=== PATIENT | female | born 1975 | race Caucasian/White ===

== ENCOUNTER → 2022-04-10 09:03 | Outpatient (BNVA) | payer OTHER, SELFPAY | PROVIDERS: PCP Family Medicine; Visit Provider Physician Assistant | DX: Z13.89 Encounter for screening for other disorder (principal) ==

== ENCOUNTER 2022-04-26 14:54 | Outpatient (REF) | payer OTHER, SELFPAY ==
--- NOTE | ~2022-04-26 | XR_ITS ---
EXAMINATION: XR CHEST CLINICAL INFORMATION: Morbid obesity COMPARISON: None TECHNIQUE: 2 views of the chest were obtained. FINDINGS: No significant abnormality is noted involving the heart, lungs, mediastinum, bony thorax or soft tissues. XR/XR chest 2V IMPRESSION: No acute disease.
--- NOTE | 2022-04-26 15:07 | ECG_ITS ---
Test Reason : OBESITY Blood Pressure : / mmHG Vent. Rate : 068 BPM Atrial Rate : 068 BPM P-R Int : 136 ms QRS Dur : 092 ms QT Int : 398 ms P-R-T Axes : 020 044 012 degrees QTc Int : 423 ms Normal sinus rhythm with sinus arrhythmia Normal ECG No previous ECGs available Referred By: Ryan Sue Electronically Signed By:KARI WING MD
[2022-04-26 15:39] LABS: MANUAL DIFF FLAG NO
[2022-04-26 15:55] LABS: Basophils Percent Auto 0.5 % (0-2); Eosinophils Absolute Auto 0.2 X10*3/uL (0.0-0.4); Hematocrit 39.7 % (37.0-47.0); Hemoglobin 13.4 g/dl (12.0-16.0); Imm Gran Abs Auto 0.04 X10*3/uL (0.00-0.03); Imm Gran Pct Auto 0.5 % (0.0-0.4); Lymphocytes Percent Auto 25.9 % (20-40); Mean Corpuscular HGB Conc 33.8 g/dl (31.0-35.0); Mean Corpuscular Hemoglobin 29.3 pg (27.0-33.0); Mean Corpuscular Volume 86.7 fL (80.0-98.0); Mean Platelet Volume 9.2 fL (9.4-12.3); Monocytes Absolute Auto 0.4 X10*3/uL (0.1-1.2); Monocytes Percent Auto 5.6 % (2-11); Neutrophils Absolute Auto 5.1 x10*3/uL (2.0-8.3); Neutrophils Percent Auto 65.5 % (45-73); Platelet Count 243 X10*3/uL (160-400); Red Blood Count 4.58 X10*6/uL (4.20-5.50); Red Cell Distribution Width 13.2 % (11.0-16.0); White Blood Count 7.8 X10*3/uL (4.8-10.8)
[2022-04-26 16:28] LABS: Alanine Aminotransferase 37 U/L (0-31); Albumin Level 4.5 g/dL (3.5-5.0); Alkaline Phosphatase 75 U/L (39-117); Anion Gap 13 (12-20); Aspartate Amino Transferase 45 U/L (5-31); Bilirubin Total 0.6 mg/dL (0.0-1.0); Blood Urea Nitrogen 14 mg/dL (9-16); C Reactive Protein 0.81 mg/dL (< or = 0.50); Calcium 9.6 mg/dL (8.4-10.2); Carbon Dioxide 25 mmol/L (22-29); Chloride 101 mmol/L (96-108); Cholesterol 244 mg/dL; Estimated Average Glucose 120 mg/dL; Estimated Glomerular Filt Rate > 60; Glucose Random 86 mg/dL (60-115); HDL Cholesterol 55 mg/dL; Hemoglobin A1c % 5.8 %; Iron 80 mcg/dL (30-160); LDL Cholesterol Calculated 177 mg/dl; Percent Iron Saturation 18 % (15-50); Potassium 4.2 mmol/L (3.3-5.1); Sodium 135 mmol/L (135-145); Total Iron Binding Capacity 444 mcg/dL (228-428); Total Protein 7.9 g/dL (6.5-8.0); Triglycerides 64 mg/dL; Unsaturated Iron Binding 364 ug/dL
[2022-04-26 16:50] LABS: Ferritin 58 ng/mL (10-250); Insulin 13 uU/mL (2-29); Vitamin D 25-OH Total 25.8 ng/mL (>30)
[2022-04-26 17:01] LABS: Folate > 20.0 ng/mL (> or = 4.0); Vitamin B12 412 pg/mL (200-900)
[2022-04-27 15:41] LABS: Calcium (PTHI) 9.2 mg/dL (8.6-10.2); PTHI 50 pg/mL (16-77)
[2022-04-30 18:25] LABS: Vitamin B1 11 nmol/L (8-30)
[2022-05-01 05:56] LABS: Zinc 102 mcg/dL (60-130)
[2022-05-01 18:02] LABS: Vitamin A 38 mcg/dL (38-98)
== END 2022-04-26 14:55 | disposition home or self-care (01) ==
LOC: HO.LAB 14:54
PROVIDERS: PCP Family Medicine; Visit Provider Surgery
DX: E66.01 Morbid (severe) obesity due to excess calories (principal)
CPT/HCPCS: 36415; 71046; 80053; 80061; 82306; 82607; 82728; 82746; 83036; 83525; 83540; 83970; 84425; 84443; 84590; 84630; 85025; 86140; 93005

== ENCOUNTER 2022-05-05 10:20 | Outpatient (REF) | payer OTHER, SELFPAY ==
[2022-05-09 11:58] LABS: H Pylori Breath Test Negative (Negative)
== END 2022-05-05 10:21 | disposition home or self-care (01) ==
LOC: HO.LNP 10:20
PROVIDERS: Visit Provider Surgery
DX: E66.01 Morbid (severe) obesity due to excess calories (principal); Z11.0 Encounter for screening for intestinal infectious diseases
CPT/HCPCS: 83013

== ENCOUNTER → 2022-05-11 11:30 | Outpatient (BNVA) | payer OTHER, SELFPAY | PROVIDERS: PCP Family Medicine; Visit Provider Counselor Mental Health | DX: F50.81 Binge eating disorder (principal); E66.01 Morbid (severe) obesity due to excess calories | CPT/HCPCS: 90791 ==

== ENCOUNTER → 2022-06-07 10:24 | Outpatient (BNVA) | payer OTHER, SELFPAY | PROVIDERS: PCP Family Medicine; Visit Provider Dietitian, Registered | DX: Z71.3 Dietary counseling and surveillance (principal); E66.01 Morbid (severe) obesity due to excess calories | CPT/HCPCS: 97802 ==

== ENCOUNTER 2022-06-22 08:01 | Outpatient (REF) | payer OTHER, SELFPAY ==
--- NOTE | ~2022-06-22 | US_ITS ---
EXAMINATION: US COMPLETE ABDOMEN WITH LIVER ELASTOGRAPHY CLINICAL INFORMATION: Morbid/severe obesity due to excess calories. COMPARISON: None. TECHNIQUE: Real-time imaging of the abdominal viscera. Noninvasive ultrasound liver fibrosis assessment is performed using Joseph ElastPQ point quantification shear wave elastography (2D-SWE) with a C5-2 MHz transducer. Multiple elastography samples are obtained. FINDINGS: PANCREAS: The visualized pancreatic head and body are normal in appearance. The remainder of the pancreas is obscured from visualization by the overlying bowel gas. ABDOMINAL AORTA: The proximal, middle, and distal aortic segments are normal in caliber. INFERIOR VENA CAVA: Visualized portions are normal. LIVER: The liver demonstrates normal size, contour and echogenicity. No focal lesion or intrahepatic biliary duct dilatation. The right lobe measures 17.5 cm in length. The left lobe measures 9.6 cm in length. Portal flow is hepatopedal. Shear wave liver elastography median stiffness is 1.71 m/s (reference: normal median stiffness is 1.3 m/s or less). IQR/median stiffness to assess sampling precision is 0.12 (reference: good quality data set is IQR/median stiffness of 0.15 or less). GALLBLADDER: Normal. The gallbladder is physiologically distended without evidence of stones, sludge, polyps, wall thickening or pericholecystic fluid. COMMON BILE DUCT: Normal in caliber measuring 0.4 cm in diameter. RIGHT KIDNEY: Normal. No hydronephrosis. No renal calculi or focal parenchymal lesions. The kidney measures 11.4 cm in maximum dimension. LEFT KIDNEY: Normal. No hydronephrosis. No renal calculi or focal parenchymal lesions. The kidney measures 11.3 cm in maximum dimension. SPLEEN: Normal. The spleen measures 9.3 cm in maximum dimension. FREE FLUID: None. US/US abdomen comp w elastography IMPRESSION: 1. Unremarkable complete abdomen ultrasound. 2. Liver elastography: Median liver stiffness 1.71 correlates with cACLD ( suggestive). REFERENCE: Society of Radiologists in Ultrasound Liver Stiffness Thresholds (2020): LIVER STIFFNESS THRESHOLDS: *Liver Stiffness equal or less than 1.3 m/s: High probability of being normal. *Liver Stiffness less than 1.7 m/s: In the absence of other known clinical signs, rules out compensated advanced chronic liver disease. *Liver Stiffness 1.7-2.1 m/s: Suggestive of compensated advanced chronic liver disease but need further test for confirmation. *Liver Stiffness over 2.1 m/s: Rules in compensated advanced chronic liver disease. *Liver Stiffness over 2.4 m/s: Suggestive of clinically significant portal hypertension. QUALITY OF DATA SET: *IQR/Median value equal or less than 0.15 implies a quality data set. *IQR/Median value over 0.15 implies a poor quality data set. SIGNIFICANT CHANGE FROM PRIOR EXAM: Significant change if liver stiffness measurement is 10% or greater from prior exam. OTHER CONSIDERATIONS: The stage of liver fibrosis may be overestimated in the setting of acute hepatitis, liver inflammation, elevated liver function tests, hepatic vascular congestion, obstructive cholestasis, non-fasting state, and infiltrative diseases such as amyloidosis and lymphoma. In some patients with NAFLD, the liver stiffness thresholds for compensated advanced chronic liver disease may be lower. In causes other than viral hepatitis and NAFLD, liver stiffness thresholds are not well established.
--- NOTE | ~2022-06-22 | FL_ITS ---
EXAMINATION: XR FLUOROSCOPY UPPER GI WITH AIR CLINICAL INFORMATION: Morbid/severe obesity due to excess calories. COMPARISON: None. TECHNIQUE: Routine upper GI air-contrast study was performed. FINDINGS: Following oral administration of thick barium and effervescent granules, there is normal propagation of bolus from the oral cavity through the pharynx and esophagus without any evidence of obstruction, narrowing or stricture. On placing patient supine and prone lying, the course, caliber and peristalsis of the stomach, duodenal bulb and the sweep are normal. There is no gastroesophageal reflux or hiatal hernia. FLUOROSCOPY TIME: 1.5 minutes. DOSE AREA PRODUCT: 30.489 uGy-m2 (microgray-meter squared). FL/FL upper GI w air IMPRESSION: Unremarkable upper GI air-contrast study.
== END 2022-06-22 08:02 | disposition home or self-care (01) ==
LOC: HO.US 08:01
PROVIDERS: Visit Provider Surgery
DX: Z01.818 Encounter for other preprocedural examination (principal); E66.01 Morbid (severe) obesity due to excess calories; K21.9 Gastro-esophageal reflux disease without esophagitis
CPT/HCPCS: 74246; 76705; 76981

== ENCOUNTER 2022-07-19 08:45 | Outpatient (REF) | payer OTHER, SELFPAY | END 2022-07-19 08:46 | disposition home or self-care (01) | LOC: HO.LAB 08:45 | PROVIDERS: PCP Family Medicine; Visit Provider Surgery | DX: Z13.89 Encounter for screening for other disorder (principal) ==

== ENCOUNTER 2022-07-27 06:07 | Inpatient (IN) | payer OTHER, SELFPAY ==
[2022-07-14 12:48] VITALS: BMI 37.0
[2022-07-19 09:08] LABS: MANUAL DIFF FLAG NO
[2022-07-19 09:38] LABS: INTERNATIONAL NORM RATIO 1.1 (0.9-1.1); Prothrombin Time 12.8 SEC (10.0-13.1)
[2022-07-19 09:40] LABS: Partial Thromboplastin Time 31.6 SEC (26.0-36.4)
[2022-07-19 09:42] LABS: Basophils Percent Auto 0.5 % (0-2); Eosinophils Absolute Auto 0.3 X10*3/uL (0.0-0.4); Eosinophils Percent Auto 4.7 % (0-4); Hematocrit 41.5 % (37.0-47.0); Hemoglobin 14.1 g/dl (12.0-16.0); Imm Gran Abs Auto 0.02 X10*3/uL (0.00-0.03); Imm Gran Pct Auto 0.4 % (0.0-0.4); Lymphocytes Absolute Auto 1.7 X10*3/uL (1.2-4.9); Lymphocytes Percent Auto 30.5 % (20-40); Mean Corpuscular Hemoglobin 29.5 pg (27.0-33.0); Mean Corpuscular Volume 86.8 fL (80.0-98.0); Mean Platelet Volume 9.6 fL (9.4-12.3); Monocytes Absolute Auto 0.4 X10*3/uL (0.1-1.2); Monocytes Percent Auto 6.8 % (2-11); Neutrophils Absolute Auto 3.2 x10*3/uL (2.0-8.3); Neutrophils Percent Auto 57.1 % (45-73); Platelet Count 221 X10*3/uL (160-400); Red Blood Count 4.78 X10*6/uL (4.20-5.50); Red Cell Distribution Width 12.7 % (11.0-16.0); White Blood Count 5.6 X10*3/uL (4.8-10.8)
[2022-07-19 09:57] LABS: Alanine Aminotransferase 24 U/L (0-31); Albumin Level 4.5 g/dL (3.5-5.0); Alkaline Phosphatase 67 U/L (39-117); Anion Gap 15 (12-20); Aspartate Amino Transferase 24 U/L (5-31); Bilirubin Total 0.7 mg/dL (0.0-1.0); Blood Urea Nitrogen 10 mg/dL (9-16); C Reactive Protein 0.28 mg/dL (< or = 0.50); Calcium 9.8 mg/dL (8.4-10.2); Carbon Dioxide 27 mmol/L (22-29); Chloride 102 mmol/L (96-108); Cholesterol 223 mg/dL; Creatinine Clr Calc Pharmacy 92.1; Estimated Glomerular Filt Rate > 60; Glucose Random 102 mg/dL (60-115); HDL Cholesterol 44 mg/dL; LDL Cholesterol Calculated 163 mg/dl; Potassium 4.6 mmol/L (3.3-5.1); Sodium 139 mmol/L (135-145); Total Protein 7.9 g/dL (6.5-8.0); Triglycerides 83 mg/dL
[2022-07-19 10:08] LABS: Estimated Average Glucose 117 mg/dL; Hemoglobin A1c % 5.7 %
[2022-07-19 10:17] LABS: Insulin 13 uU/mL (2-29)
--- NOTE | 2022-07-22 00:21 | MHC.SHP ---
Pre-Procedural Eval Section A Date of Service: 07/22/22 The patient is an INPATIENT: Yes The History & Physical has been completed within 30 days and I have reviewed it.: Yes Section B Chief Complaint: obesity Relevant Family History (Specify if Yes): No Relevant Social History: None Present Medications: None Medical History: No relevant PMH History of Previous Operations: No relevant previous surgery Allergies: Allergies Allergy/AdvReac Type Severity Reaction Status Date / Time No Known Allergies Allergy Verified 07/17/22 13:25 Review of Systems Sugical H&P ROS: Negative: Constitution, Cardiovascular, Respiratory, Neurological, Psychiatric, Hem-Onc, Allergic/Immunologic, Gastrointestinal, Genitourinary, Musculoskeletal, Integumentary, Endocrine and Eyes/Ears/Nose/Throat Exam Surgical H&P Exam: Normal: HEENT, Normal: Heart, Normal: Lungs, Normal: Extremities, Normal: Abdomen, Normal: Skin and Normal: Neurological Plan Diagnosis/Plan: Unchanged I have reviewed the history and physical and performed a pertinent physical examination on my patient. No changes have occurred unless specified.
[2022-07-27] VITALS (14 sets, daily range): BP systolic 115–154; BP diastolic 62–82; PULSE 54–85; RESP 12–18; TEMP 36.2–36.9; O2SAT 96–100
[2022-07-27 06:32] LABS: UPreg QC Valid YES; Urine Pregnancy NEGATIVE (NEGATIVE)
[2022-07-27] MEDS: Lactated Ringers 1,000 ML 999 ML IV (06:34)
[2022-07-27 07:08] LABS: COVID-19 Test Negative (Negative); IDNOW Serial# 9DB6401D
--- NOTE | 2022-07-27 07:15 | HO.ANESPROP2 ---
HPI - Anesthesia Eval Consult details Narrative: 46 F for gastric sleeve PMFSH Active Problems Active Problems: All Active Problems (Updated 07/17/22 @ 13:23 by Ryan Sue MD) Sleep apnea with use of continuous positive airway pressure (CPAP) (Acute) BMI 36.0-36.9,adult (Acute) Morbid obesity (Acute) Vitamin D deficiency (Acute) Vitamin B12 deficiency (Acute) Constipation (Acute) Binge-eating disorder, mild (Acute) Obesity (Acute) BMI 37.0-37.9, adult (Acute) Past Medical History Medical History (Updated 07/27/22 @ 10:10 by Ryan Sue MD) BMI 36.0-36.9,adult Obesity Sleep apnea Functional capacity: independent ambulation Family History Family History (Updated 04/10/22 @ 09:15 by Tanika Anthony) Mother No problems noted. Father Hypertension High cholesterol Family history of problems with anesthesia: No Surgical History Surgical History (Updated 07/27/22 @ 09:59 by Neeru Sam PA-C) Hx of breast reduction, elective Hx of section History of Problems with Anesthesia: No Social History Social History (Updated 04/10/22 @ 09:14 by Tanika Anthony) Are you a primary adult care manager to a significant other at home: No Do you presently have visiting nurse or other home services: No Alcohol intake: current Alcohol intake frequency: holidays/special occasions only Patient Tobacco Use Status: Never used Tobacco Use of substances other than those prescribed or required for medical reasons: No Currently Displaying Signs/Symptoms of Drug Intoxication Withdrawal: No Have you been hit, kicked, punched, or otherwise hurt by someone within the past year? If so, by whom?: No Are you DNR?: No Advance Directives: No Advance Directives Information Provided: Yes (Info mailed) Advance Directives on File: No Recently lost weight without trying: No How much weight loss: 24-33 pounds Eating poorly because of decreased appetite: No Nutrition screen score: 3 Nutrition Risks: No Nutritional Risk Patient : No FDLMP: 06/29/22 : No Poor oral hygiene: No Meds Allergies Allergy/AdvReac Type Severity Reaction Status Date / Time No Known Allergies Allergy Verified 07/27/22 06:47 Active Medications: Current Medications Lactated Ringer's (Lr) 1,000 mls @ 999 mls/hr IV .Q1H1M COUNTS INCLUDE 234 BEDS AT THE [facility] Stop: 07/27/22 08:15 Last Admin: 07/27/22 06:34 Dose: 999 mls/hr Lactated Ringer's (Lr) 1,000 mls @ 50 mls/hr IVCONT .Q20H COUNTS INCLUDE 234 BEDS AT THE [facility] Exam Exam Date and Time: July 27, 2022 0715 Height,Weight and Vital Signs: Height 5 ft 5 in Weight 101.151 kg Last Vital Signs Temp 97.9 F 07/27/22 06:28 Pulse 57 07/27/22 06:28 Resp 18 07/27/22 06:28 BP 130/76 07/27/22 06:28 Pulse Ox 98 07/27/22 06:28 O2 Del Method 07/27/22 06:28 Pertinent Lab Results Pertinent Lab Results: Laboratory Tests 07/19/22 07/19/22 07/19/22 09:05 09:05 09:05 WBC 5.6 RBC 4.78 Hgb 14.1 Hct 41.5 MCV 86.8 MCH 29.5 MCHC 34.0 RDW 12.7 Plt Count 221 MPV 9.6 Immature Gran % (Auto) 0.4 Neut % (Auto) 57.1 Lymph % (Auto) 30.5 Alexander % (Auto) 6.8 Eos % (Auto) 4.7 H Baso % (Auto) 0.5 Lymph # (Auto) 1.7 Alexander # (Auto) 0.4 Eos # (Auto) 0.3 Baso # (Auto) 0.0 Abs Immat Gran (auto) 0.02 Absolute Neuts (auto) 3.2 Absolute Nucleated RBC 0.000 Nucleated RBC % (auto) 0.0 PT 12.8 INR 1.1 APTT 31.6 Sodium 139 Potassium 4.6 Chloride 102 Carbon Dioxide 27 Anion Gap 15 BUN 10 Creatinine 0.90 Estim Creat Clear Calc 92.1 Estimated GFR > 60 Random Glucose 102 Estimat Average Glucose Hemoglobin A1c % Insulin Level 13 Calcium 9.8 Total Bilirubin 0.7 AST 24 D ALT 24 Alkaline Phosphatase 67 C-Reactive Protein 0.28 Total Protein 7.9 Albumin 4.5 Triglycerides 83 Cholesterol 223 LDL Cholesterol, Calc 163 HDL Cholesterol 44 TSH 1.40 Urine Test COVID-19 ([facility]TER) COVID-19 Clin Com Blood Type Antibody Screen 07/19/22 07/19/22 07/27/22 09:05 09:05 06:15 WBC RBC Hgb Hct MCV MCH MCHC RDW Plt Count MPV Immature Gran % (Auto) Neut % (Auto) Lymph % (Auto) Alexander % (Auto) Eos % (Auto) Baso % (Auto) Lymph # (Auto) Alexander # (Auto) Eos # (Auto) Baso # (Auto) Abs Immat Gran (auto) Absolute Neuts (auto) Absolute Nucleated RBC Nucleated RBC % (auto) PT INR APTT Sodium Potassium Chloride Carbon Dioxide Anion Gap BUN Creatinine Estim Creat Clear Calc Estimated GFR Random Glucose Estimat Average Glucose 117 Hemoglobin A1c % 5.7 Insulin Level Calcium Total Bilirubin AST ALT Alkaline Phosphatase C-Reactive Protein Total Protein Albumin Triglycerides Cholesterol LDL Cholesterol, Calc HDL Cholesterol TSH Urine Test NEGATIVE COVID-19 ([facility]) [facility] [employer] [email or web address] Blood Type A Positive Antibody Screen NEGATIVE 07/27/22 06:15 WBC RBC Hgb Hct MCV MCH MCHC RDW Plt Count MPV Immature Gran % (Auto) Neut % (Auto) Lymph % (Auto) Alexander % (Auto) Eos % (Auto) Baso % (Auto) Lymph # (Auto) Alexander # (Auto) Eos # (Auto) Baso # (Auto) Abs Immat Gran (auto) Absolute Neuts (auto) Absolute Nucleated RBC Nucleated RBC % (auto) PT INR APTT Sodium Potassium Chloride Carbon Dioxide Anion Gap BUN Creatinine Estim Creat Clear Calc Estimated GFR Random Glucose Estimat Average Glucose Hemoglobin A1c % Insulin Level Calcium Total Bilirubin AST ALT Alkaline Phosphatase C-Reactive Protein Total Protein Albumin Triglycerides Cholesterol LDL Cholesterol, Calc HDL Cholesterol TSH Urine Test COVID-19 (PORTER) Negative [facility] [email or web address] See Note Blood Type Antibody Screen Airway Mallampati Class: III TM Dist: >3cm Neck ROM: Full Loose/Missing/Broken Teeth: Yes (Caps , fillings ) Heart: S1,S2 Lungs: b/l breath sounds Assessment and Plan Assessment Anesthesia Assessment: Anesthesia Plan Discussed and Chart Reviewed Final Anesthetic Review Family History of Problems with Anesthesia: No History of Problems with Anesthesia: No NPO: Yes ASA Class: III Final Preanesthetic Review: Meds/Allgs Chart Reviewed, Consent Obtained/Reviewed and Anes Risks/Benef Reviewed Patient Risk: Intermediate Procedure Risk: Intermediate Anesthetic Plan Anesthetic Plan: GA Disposition: Standard PACU
[2022-07-27] MEDS: ceFAZolin Sodium/Dextrose,Iso 2 GM/50 ML PIGGYBACK IV ×2 (08:00→13:40)
--- NOTE | 2022-07-27 10:01 | P.DS_ITS ---
DS: Providers Provider Date of Service: 07/28/22 Date of admission: 07/27/22 06:07 Primary care physician: Marco Antonio Baltazar MD DS: Summary Hospital Course Hospital Course: ADMITTING DIAGNOSIS: morbid obesity, sleep apnea DISCHARGE DIAGNOSIS: same, s/p laparoscopic sleeve gastrectomy PAST SURGICAL HISTORY: section and breast reduction PROCEDURE: upper endoscopy, laparoscopic sleeve gastrectomy DISCHARGE SUMMARY: History of Present Illness: The patient is a 46 year-old woman with a BMI of 41.8 kg/m2 and associated co- morbidities as described above. The patient had extensive work-up,lost 24.4 lbs preoperatively and was electively scheduled for laparoscopic, possible open sleeve gastrectomy and gastropexy. Risks and complications of the surgery were discussed with the patient in advance, particularly the possibility of , pulmonary embolism, anastomotic leak, bleeding, bowel injury, GERD, cardiac, renal or pulmonary complications. The patient understood all the risks and was in agreement with the surgical plan. Hospital Course: The patient underwent an uneventful laparoscopic sleeve gastrectomy with gastropexy on the day of admission. Postoperatively, the patient was transferred to the surgical floor. The patient received IV Acetaminophen and IV dilaudid for pain control. Patient was started on bariatric phase 1 diet POD #0. On postoperative day one, the patient was feeling well without nausea, vomiting, fevers, or tachycardia. The patient had some mild incisional pain and the abdomen was soft. On the morning of postoperative day one, the patient was continued on 1 ounce of water or ice every half hour. During the day, the patient did fairly well, having some incisional pain, but able to ambulate adequately and to tolerate liquids well. Since the patient is doing well, we decided that the patient was ready to be discharged. The patient was given instructions to follow-up with me next week and to call my office for any fever over 101, persistent abdominal pain, nausea, vomiting, GERD, symptoms of DVT such as calf tenderness, or leg swelling, or pulmonary embolism such as chest pain or shortness of breath. The patient was also instructed to drink 40-60 ounces of liquids per day using the 1-ounce cups. The patient had been given prescriptions for Tylenol for pain, Zofran prn for nausea, and pantoprazole and carafate previously. The patient was encouraged to ambulate and use the incentive spirometer. The patient was allowed to shower, but no baths, and encouraged to stay active at home. All of these ins tructions were given to the patient personally. All questions were answered and the patient understood all instructions, the instructions were also given to the patient in print. Time Spent with Patient Time attestation: Total time spent providing and/or coordinating discharge services: Discharge coordination time: Less than 30 minutes Quality: Safe Use of Opioids Does Pt have an Active Cancer Diagnosis on the Problem List?: No Quality: Stroke Does the patient have a stroke diagnosis?: No Physical Exam Vital Signs: Vital Signs: Last Vital Signs Temp 97.9 F 07/27/22 06:28 Pulse 57 07/27/22 06:28 Resp 18 07/27/22 06:28 BP 130/76 07/27/22 06:28 Pulse Ox 98 07/27/22 06:28 O2 Del Method 07/27/22 06:28 BMI result Body Mass Index 37.0 DS: Data Data Completed and Pending Pending studies at discharge: Pending at discharge 07/27/22 09:20 Surgical [PTH] Routine Labs on day of discharge: Laboratory Results - last 24 hr 07/27/22 07/27/22 06:15 06:15 Urine Test NEGATIVE COVID-19 ([facility]TER) Negative COVID-19 Clin Com See Note Discharge Plan Discharge Anticipated Discharge Date/Time: 07/28/22 10:58 Patient Disposition: Home, Self-Care Discharge Diagnosis: s/p sleeve gastrectomy Referrals: Marco Antonio Baltazar MD [Primary Care Provider] - 1 Week Discharge Medications: Continued pantoprazole 40 mg tablet,delayed release (DR/EC) 40 mg PO DAILY Qty: 30 2RF sucralfate 100 mg/mL suspension 10 ml PO BID Qty: 400 2RF ondansetron HCl 4 mg tablet 4 mg PO Q12H Qty: 20 0RF Discontinued cholecalciferol (vitamin D3) 125 mcg (5,000 unit) capsule 125 mcg PO DAILY Qty: 30 2RF mecobalamin (vitamin B12) 1,000 mcg tablet,disintegrating 1,000 mcg sublingual DAILY Qty: 30 1RF Rx Instructions: place tablet under tongue and allow to dissolve for at least30 secs before swallowing docusate sodium [Colace] 100 mg capsule 100 mg PO DAILY Qty: 30 2RF Discharge Orders: Discharge Order (Routine); Ordered 07/28/22 Ordered By: Ryan Sue Activity on Discharge: No heavy lifting Stand Alone Forms: Patient Portal Discharge page Care Plan Goals: weight loss Health Concerns: morbid obesity Plan of Treatment: No tub baths, sex or returning to work until discussed at first post op appointment. No exercise, alcohol, tobacco or illegal drug use. Continue to use incentive spirometer hourly while awake. Walk in home for 5- 10 minutes every 2 hours during the first week. Continue phase 1 diet today and start phase 2 diet tomorrow morning. Follow all instructions in the bariatric handbook and call with any questions. 1. Please call your doctor or come back to the emergency room should any new symptoms arise. 2. You will receive a courtesy call from [facility] 24-48 hours after discharge. 3. Activity: abstain from alcohol, practice limited stair climbing, no bending, no driving, no exercise, no illicit substances, no lifting, no sex, no tub bath, no work. 4. Diet: continue as discussed with bariatric team.. 5. Dressing Change/Wound Care: Do not change or remove surgical dressings unless they are wet or soiled. 6. Call your doctor if: - Your temperature exceeds 101.5 F - You experience excessive pain or swelling - You have an unexpected reaction to medication - You have excessive bleeding - You experience continued vomiting/nausea - Your incision begins to separate - Your incision shows signs of infection such as increased redness, swelling, excessive pain, heat, or drainage (light blood or clear fluid is normal) 7. General instructions: No lifting greater than 5 lbs for the next 4 weeks[address] driving within 24 hours of taking narcotic pain medications. If you do not move your bowels in the next 2 days, please take milk of magnesia over the counter. Please follow the post op diet and do not advance your diet until you are seen in the office in about 2 weeks. Please walk around your home every hour or two to prevent blood clots from forming in your legs. You do not need to wake from sleeping to walk. Please sleep in a bed or couch to prevent kinking at the hips and knees. Please take your incentive spirometer (your lung import export manager) home with you and use it for the next few days to prevent pneumonias. You may shower, no hot tubs, baths or swimming pools. Please call the office with any questions or concerns such as increasing abdominal pain, fever, chills, shortness of breath, chest pain, leg pain or swelling, or redness or drainage from your incisions. Do not hesitate to contact the office with any questions at . The patient's medical history has been reviewed and they are considered low risk for post op DVT and therefore DVT prophylaxis is not considered necessary. Travel after surgery was reviewed. The patient has not disclosed any travel plans during the first 30 days after surgery and they have been advised that within the first 30 days after surgery any bus, plane, train or car travel over 2 hours in duration is contraindicated due to the possibility of developing blood clots from immobility. Any travel, needs to include periods of ambulation of 10 minutes in duration every 2 hours. The patient was instructed to discuss any plans for travel during this period with their bariatric surgeon. Assessment: stable post op sleeve gastrectomy Discharge Date/Time: 07/28/22 09:20
--- NOTE | 2022-07-27 10:05 | P.BOP_ITS ---
Brief Operative Note Date of Service: 07/27/22 Pre-op diagnosis: Severe obesity with comorbidities (see below) Post-op diagnosis: same Procedure: INITIAL PATIENT BMI ON PRESENTATION AT OUR OFFICE: 41.8 kg/m2 LAST BMI BEFORE SURGERY: 36.5 kg/m2 COMORBIDITIES: sleep apnea, liver fibrosis ?The patient presented to the Weight Management Program with significant obesity that was negatively impacting the patient's comorbidities as listed above.? The program is a phased program with a special focus on preoperative medical weight management to promote substantial weight loss and prepare the patients for the second phase of the program: bariatric surgery. The patient participated in an intensive weekly lifestyle ?intervention and exercise program during which the patient ?has lost between the initial office visit and the last preoperative visit 24.4 lbs, or 10% of initial actual body weight. It was deemed appropriate for the patient to now have bariatric surgery. In light of the current Covid-19 pandemic and the well documented strong association of obesity and increased risk of worse outcomes if infected with Covid-19 (REFERENCES: https://pubmed.ncbi.nlm.nih.gov/99591009/ ,? https://pubmed.ncbi.[facility].nih.gov/21079262/ ), any delay in undergoing bariatric surgery may lead to the patient's worsening health condition and increased?risk of more severe Covid-19 disease if infected. In addition a recent?study from [facility] published in [facility] on 10/31/2021 (file:///C:/[email or web address]/[facility]_[email or web address].pdf) found that, among patients with obesity, substantial weight loss achieved with surgery was associated with improved outcomes of COVID-19 infection. The findings suggest that obesity can be a modifiable risk factor for the severity of COVID-19 infection. In addition, the patient met the BMI-criteria for bariatric surgery based on the BMI on initial presentation. The patient should not be penalized for achieving such weight loss because ?it is not sustainable long-term without surgical intervention and it was achieved in preparation for bariatric surgery ?under my direction and based on my published research (file:/// C:/[email or web address]/[email or web address]/[email or web address](3).pdf and? https://www.soard.org/article/X4457-3565(34)73392-X/pdf ) ?that a 10% preoperative weight loss improves long-term weight loss after surgery and reduces perioperative complications.? Insurance carriers such as [facility] have endorsed my recommendations ?and have included in their policies criteria to include a 10% preoperative weight loss requirement. PROCEDURE: Esophago-gastroscopy, laparoscopic sleeve gastrectomy and laparoscopic gastropexy INDICATIONS: This is a 46 year-old female who was electively scheduled for lapa roscopic, possibly open sleeve gastrectomy. The risks and complications of the procedure were discussed with the patient in advance, particularly the possibility of ; pulmonary embolism; staple line leak; bleeding; GERD; cardiac, pulmonary, or renal complications; as well as long-term problems such as insufficient weight loss, vitamin deficiency, strictures, or ulcers. The patient understood all the risks, and was in agreement to proceed with surgery. DESCRIPTION OF PROCEDURE: After informed consent was obtained from the patient, the patient was given preoperative antibiotics, and was transferred to the operating room. After successful induction of general anesthesia, pneumatic compression devices were placed on both lower extremities. An upper endoscopy was performed next. The oropharynx and esophagus appeared to be within normal limits. There was no diaphragmatic hernia present consistent with the findings of the preoperative upper GI. The stomach was entered. Then after all fluid and air were suctioned and the stomach was fully decompressed, the scope was withdrawn and secured in the mid esophagus. The patient was then prepped and draped in the usual sterile manner, and abdominal access was established at the right upper quadrant with the Pascual technique. A 12 mm blunt port was inserted, and the abdomen was insufflated with CO2 to a pressure of 15 mmHg. Under direct visualization, additional ports were placed, specifically two 5 mm Versi-step ports to the left upper quadrant, and a 5 mm Versi-Step port to the right upper quadrant. 1% lidocaine plain was used to infiltrate all port sites as well as all fascia defects. Following that, the patient was placed in a steep reverse Trendelenburg position. An additional 5 mm port was placed to the right flank for the Mediflex retractor that was used to retract the left lobe of the liver. The gastro-esophageal fat pad was opened with the ultrasonic device (Thduncanerbeat, Olympus) and the anterior esophagus and hiatus were exposed. The angle of His was opened with the ultrasonic device the fundus of the stomach from any diaphragmatic and splenic attachments. I then opened the gastrocolic ligament between the transverse colon and the greater curvature of the stomach with the ultrasonic device to enter the lesser sac and facilitate the ligation of the short gastric vessels. I started at a mid-point along the greater curvature and using the Thunderbeat, all short gastric vessels were divided all the way to the angle of His until the left widler was completely dissected at its entirety. I then divided the gastro-colic ligament distally to a distance of about 3-4 cm proximal to the pylorus. The stomach was then divided transversely with one Endo AMY-45 purple, two AMY- 45 orange loads and three AMY-60 articulating orange loads using the AEON stapler and loads. Every effort was made that the gastric sleeve had a tubular shape and an even caliber throughout. Once the sleeve resection was completed, the staple line of the gastric sleeve was reinforced with Hemoclips. The resected stomach was retrieved without difficulty from the Pascual port. A gastropexy was then performed in order to prevent postoperative GERD and partial gastric volvulus. Several interrupted 2.0 Surgidac sutures were placed between the sleeve's staple line and the previously divided greater omentum and gastro-colic ligament using the Endo-Stitch device. ?An upper endoscopy was performed. There was no narrowing at the GE junction. The scope was easily advanced all the way to the pylorus which was clearly visualized. There was no narrowing anywhere and the sleeve's caliber was even throughout. The sleeve's staple line was inspected and there was no evidence of ischemia, bleeding or dehiscence. At that point the gastroscope was withdrawn from the patient?s mouth while we were decompressing the bowel and the stomach from any remaining air. I looked into the lesser sac to see how the sleeve was situating and it was situating well. There was no bleeding from the staple line, spleen, or short gastric vessels. The Mediflex retractor was removed, and the undersurface of the liver was inspected and there was no bleeding. The patient was placed in supine position. I closed the fascial defect of the 12 mm port site with a figure of eight #1 Polysorb suture. Then 30 cc of Ropivacaine plain with 10 mg of Dexamethasone were used to infiltrate the fascial closure as well as all skin incisions. A total of 7ml of Zynrelef was applied in the Pascual wound. At this point, the abdomen was deflated, all ports were removed under direct vision, and no bleeding was noted from any of the port sites. The skin incisions were irrigated with saline and were closed with 4-0 absorbable monofilament sutures. Steri-Str ips and OpSites were used to cover all incisions. The patient was extubated and was transferred in stable condition to the recovery room for further care. I was present and performed all vazquez parts of the procedure. Ms. Sam was the first officer. There were no residents to assist with this case. Christian Sue MD, PhD, FACS Surgeon: Ryan Sue MD Anesthesia: GETA, local and other (TAP block and 7ml of Zynrelef) Was an Quantitative Analyst Marketing used for this Procedure?: Yes Quantitative Analyst Marketing: Neeru Sam Estimated blood loss (mL): 10 IV fluids (mL): 2,000 Urine output (mL): 0 (No Zhang to record) Pathology: other (Stomach) Condition: stable Disposition: PACU
--- NOTE | 2022-07-27 10:09 | PM.PNGS ---
Subjective Subjective Date of Service: 07/28/22 Interval history: Patient has mild incisional pain, but was able to ambulate and use the incentive spirometer. She is tolerating phase 1 bariatric diet Physical Exam Vital Signs: Vital Signs: Last Vital Signs Temp 97.9 F 07/27/22 06:28 Pulse 57 07/27/22 06:28 Resp 18 07/27/22 06:28 BP 130/76 07/27/22 06:28 Pulse Ox 98 07/27/22 06:28 O2 Del Method 07/27/22 06:28 BMI result Body Mass Index 37.0 GI: Inspection: Yes normal to inspection, Yes incision (clean, dry and intact) and Yes obesity Extrem: Right lower extremity: normal to inspection (no calf tenderness) Left lower extremity: normal to inspection (no calf tenderness) Objective Data Active Medications Famotidine (Famotidine/Pf 20 Mg/2 Ml Vial) 20 mg IVPUSH BID SHAYNE Fentanyl (Fentanyl Citrate/Pf 100 Mcg/2 Ml Vial) 25 mcg IVPUSH Q5M PRN; Protocol PRN Reason: Pain, Moderate (Pain Scale 4-6 Hydromorphone HCl (Hydromorphone Hcl 0.5 Mg/0.5 Ml Syringe) 0.25 mg IVPUSH Q5M PRN; Protocol PRN Reason: Pain, Severe (Pain Scale 7-10) Lactated Ringer's (Lr) 1,000 mls @ 50 mls/hr IVCONT .Q20H SHAYNE Promethazine HCl 6.25 mg/ (Sodium Chloride) 50.25 mls @ 201 mls/hr IV ONCE PRN PRN Reason: Nausea and Vomiting Lactated Ringer's (Lr) 1,000 mls @ 100 mls/hr IVCONT .Q10H SHAYNE Metoclopramide HCl (Metoclopramide Hcl 10 Mg/2 Ml Vial) 10 mg IVPUSH Q6H PRN PRN Reason: Nausea Ondansetron HCl (Ondansetron Hcl 4 Mg/2 Ml Vial) 4 mg IVPUSH Q8H [facility] Labs CBC & Chem 7: 07/28/22 05:39 07/28/22 05:39 Labs: Laboratory Results - last 24 hr 07/27/22 07/27/22 06:15 06:15 Urine Test NEGATIVE COVID-19 (PORTER) Negative COVID-19 Clin Com See Note Procedures Date of Service Date of Service: 07/28/22 Progress Note: A&P Assessment and plan (1) Obesity: Status: Acute Assessment and Plan: s/p laparoscopic sleeve gastrectomy and gastropexy Doing well Check am labs. If OK, will discharge home? (2) BMI 36.0-36.9,adult: Status: Acute (3) S/P laparoscopic sleeve gastrectomy: Status: Acute (4) Sleep apnea with use of continuous positive airway pressure (CPAP): Status: Acute (5) Liver fibrosis: Status: Acute Time Spent With Patient Time: Total time spent is greater than 50% in coordination of care (as documented) at patient's floor/unit and/or counseling patient: Quality Stroke Does the patient have a stroke diagnosis?: No VTE Prior VTE?: No VTE Risk Level:: Surgical - moderate VTE Device Contraindication: N/A - Device Ordered VTE Drug Contraindication: Treatment Not Indicated
[2022-07-27] MEDS: Famotidine/PF 20 MG/2 ML VIAL IVPUSH ×2 (10:16→20:01)
[2022-07-27 10:25] LABS: Hematocrit 35.8 % (37.0-47.0); Hemoglobin 12.2 g/dl (12.0-16.0)
[2022-07-27] MEDS: Lactated Ringers 1,000 ML 100 ML IVCONT ×3 (10:30→20:11)
[2022-07-27 10:33] LABS: Anion Gap 14 (12-20); Blood Urea Nitrogen 8 mg/dL (9-16); Calcium 8.4 mg/dL (8.4-10.2); Carbon Dioxide 23 mmol/L (22-29); Chloride 105 mmol/L (96-108); Creatinine Clr Calc Pharmacy 92.1; Estimated Glomerular Filt Rate > 60; Glucose Random 140 mg/dL (60-115); Sodium 138 mmol/L (135-145)
[2022-07-27] MEDS: Metoclopramide HCl 10 MG/2 ML VIAL IVPUSH (15:57)
[2022-07-27] MEDS: ondansetron HCL 4 MG/2 ML VIAL IVPUSH (17:33)
[2022-07-28] MEDS: 0.9 % Sodium Chloride Flush 3 ML SYRINGE IVFLUSH (00:34)
[2022-07-28] MEDS: ondansetron HCL 4 MG/2 ML VIAL IVPUSH (02:03)
[2022-07-28 03:45] VITALS: BP 149/70; PULSE 51; RESP 16; TEMP 36.7; O2SAT 97
[2022-07-28 06:26] LABS: MANUAL DIFF FLAG NO
[2022-07-28 06:35] LABS: Basophils Percent Auto 0.1 % (0-2); Eosinophils Percent Auto 0.1 % (0-4); Hematocrit 34.8 % (37.0-47.0); Hemoglobin 11.8 g/dl (12.0-16.0); Imm Gran Abs Auto 0.02 X10*3/uL (0.00-0.03); Imm Gran Pct Auto 0.2 % (0.0-0.4); Lymphocytes Percent Auto 8.8 % (20-40); Mean Corpuscular HGB Conc 33.9 g/dl (31.0-35.0); Mean Corpuscular Hemoglobin 28.8 pg (27.0-33.0); Mean Corpuscular Volume 84.9 fL (80.0-98.0); Mean Platelet Volume 10.2 fL (9.4-12.3); Monocytes Absolute Auto 0.8 X10*3/uL (0.1-1.2); Monocytes Percent Auto 6.9 % (2-11); Neutrophils Absolute Auto 9.1 x10*3/uL (2.0-8.3); Neutrophils Percent Auto 83.9 % (45-73); Platelet Count 215 X10*3/uL (160-400); Red Cell Distribution Width 12.5 % (11.0-16.0); White Blood Count 10.9 X10*3/uL (4.8-10.8)
[2022-07-28 07:01] LABS: Anion Gap 17 (12-20); Blood Urea Nitrogen 7 mg/dL (9-16); Calcium 8.8 mg/dL (8.4-10.2); Carbon Dioxide 22 mmol/L (22-29); Chloride 104 mmol/L (96-108); Creatinine Clr Calc Pharmacy 107.5; Estimated Glomerular Filt Rate > 60; Glucose Random 101 mg/dL (60-115); Sodium 139 mmol/L (135-145)
[2022-07-28 08:00] VITALS: BP 152/70; PULSE 51; RESP 16; TEMP 36.3; O2SAT 96
--- NOTE | 2022-07-28 08:29 | MHC.CM.PN ---
HOME TODAY - SELF CARE RN AWARE. PATIENT HAS TRANSPORT ARRANGED
--- NOTE | 2022-07-28 09:20 | PC.NURSE ---
Middle dressing to abdomen changed and additional tegaderm applied to mid upper steri strips.
--- NOTE | 2022-07-28 09:27 | MHC.CM.PN ---
PT LIVES WITH HER INDEPENDENT WITH ALL CARE AND WORKS FT HAS NO DME AND NO HOME SERVICES PCP: PIERO HEWITT PT DISCHARGED HOME TODAY WITH NO SERVICES
--- NOTE | 2022-07-28 14:49 | HO.POSTANES ---
Post Anesthesia Evaluation Post Anesthesia Evaluation Vital Signs: Vital Signs Temp Pulse Resp BP Pulse Ox O2 Del Method 07/28/22 08:00 97.4 F 51 16 152/70 H 96 Room Air 07/28/22 03:45 98.1 F 51 16 149/70 H 97 Room Air Anesthesia: General Endotracheal-GETA Mental Status: Awake Pain Control: Satisfactory Nausea/Vomiting: None Hydration: Adequate Anesthesia-Related Issues: No Anes. Related Issues
--- OUTSIDE RECORDS SUMMARY | 2022-08-02 13:58 | XMS_ITS | Encounter Summary ---
:1975 Author Care Team Providers Name Role Phone Dr. Marco Antonio Baltazar Primary Care Provider [phone] Marco Antonio Baltazar Referring Provider [phone] Reason for Visit New sleep apnea patient telemedicine HST 04/20/2022, PT DOING CALL AT HOME Assessment and Plan 1. Obstructive sleep apnea of adult The findings of the sleep study were di scussed with the patient. I discussed the risks of having obstructive sleep apnea including stroke, atrial fibrillation, hypertension, all cardiovascular , c ognitive impairment as well as glaucoma. I also discussed various symptoms including excessive daytime sleepiness, unrefreshing sleep, waking up gasping for air, increased risk of drowsy driving and day time impairment. I also discussed variou s treatment options including weight loss, various surgical procedures including inspire, positional therapies, oral mandibular advancement devices as well as Pap therapy. In addition, we spoke about EP AP devices. She wants to think about which device s he wants and will get back to me. Discussion Note: None recorded.Patient educational handouts: No information available. Plan of Care Reminders Provider Appointments None recorded. ? ? Lab None recorded. ? ? Referral None recorded. ? ? Procedures None recorded. ? ? Surgeries None recorded. ? ? Imaging None recorded. ? ? Medications Name Start Date ? ? cholecalciferol (vitamin D3) 125 mcg (5,000 unit) caps ule ? TAKE 1 CAPSULE BY MOUTH EVERY DAY cyanocobalamin (vit B-12) 1,000 mcg sublingual tablet ? PLACE 1 TABLET UNDER TONGUE AND ALLOW T O DISSOLVE FOR AT LEAST30 SECS BEFORE SWALLOWING docusate sodium 100 mg capsule ? TAKE 1 CAPSULE BY MOUTH EVERY DAY Medications Administered None recorded. Vitals Height Weight BMI 5 ft 7 in 225 lbs 35.2 kg/m2 Results Lab Results None recorded. Allergies Code Code System Name Reaction Severity Onset NKDA ? ? ? Problems None recorded. Procedures Date Name Performed by ? ? Breast Reduction Information not avai lable ? Section Information not avai lable Notes: X3 Vaccine List None recorded. Social History Tobacco Smoking Status Never Smoker What is your level of alcohol consumption? Occasional Have you been exposed to chemicals or toxins? N Do you have any pets? N Are you currently employed? Y Have you been exposed to heavy metals? N Are you passively exposed to smoke? N Do you or have you ever used any other forms of tobacco or Y nicotine? Are there any occupational health risks where you work? [employer] Family History Relation Problem Onset Age of Age Notes Mother Amyotrophic lateral sclerosis (No Information) N/A (No Notes) Brother Neoplasm of brain (No Information) N/A (No No antoni) Functional Status Unknown. Past Encounters 06/20/2022 Obstructive Sleep Apnea of Adult Tim Ja Murillo MD: [address] [place] [address], [address], [place] [address], Ph. History of Present Illness ? CJM Sleep Apnea New Reported By: Patient Sleep HPI: HPI: The patient is a 46 yea r old female, who I am seeing for female, ., The patient has b een experiencing ., Typical bedtime is 10 PM., Typical wake time is 7 AM., , admits to waking up several times at night , dif ficulty falling back asleep., Denies waking up at night., no, no, naps during day Sleep study results:: HSAT showed moderate KATHYA., N adir sat %: 85 ., There was a total number of apneas and hypopne as of 133 ., AHI was 17.1 ? cjm telemedicine statement Reported By: Patient Type of telemedicine vist:: This visit was conducted v ia video with audio. Billing discussion: The patient was informed that this visit would be billed to the [facility]'s insurance company and consented to such Informed consent:: Location of provider and pat ient: I have informed the patient of my location as my office., I have ascertained the location of the patient during this office visit. Patient was informed of the choice of an in-person appointment or remote clinic visit, any relevant privacy considerations and that in t he event of an emergency they can be seen in person. [facility] choice: after the above discussion, the patient gave informed consent to a telemedicine visit and wishe d to proceed Location of services:: Provider: office. Patient: h ome Attendees:: Attendees during visit: prov ider, patient Chart review:: PMH; SH; FH; and pertinent l abs: were reviewed by me personally, both prior to e encounter and again with the patient during the visit Review of Systems ? Sleep ROS Reported By: Patient Constitutional: sleep no nonmoving limbs (pa ralysis): occurring temporarily: with intense em otions (cataplexy), no insomnia, no nonmoving limbs (paralysis): occurring temporarily: when falling as leep or awakening (sleep paralysis): when falling asl eep, no violent behavior while asleep/dream enactment, does not suddenly falling asleep during the day, no headaches upon awakening, legs do not feel restless: relieved by m ovement, no recurring nightmares, no awakening in the middle of the night: having a snack, does not sleep dist urbances: talking while asleep, not disrupted secondary to p ain, no sleepwalking, snoring, fatigue, daytime sleepiness, not refreshed upon awakening, moderate to high likelihood of napping during the day; witnessed apneic episodes CARDS: Cardiovascular: does not_ext ra pillows or sleeping upright (orthopnea), no chest pain, no arm pain on exertion, no shortness of breath when wal shanae, no palpitations, no known heart murmur, no ankle swell ing PULM: Respiratory: no cough, no wh eezing, no chest tightness, no pain with respiration, elena l respiration GI: heartburn no heartburn, no h eartburn: at night in bed neurological symptoms: Neuro: no numbness, no weakn ess, no tingling, no burning, no shooting pain, no headach e, no dizziness, no loss of consciousness endocrine symptoms: thyroid no heat intolerance, no cold intolerance otolaryngeal symptoms: throat awakening in the midd le of the night: with sore throat. nose and sinus nasal passage blockage (stuffiness) musculoskeletal symptoms: neuromuscular / connective / soft tissue symptoms (normal) muscle aches: generalized (m yalgias) Notes: <p>
</p> Physical Exam ? Notes: <p> The patient demonstrated no signs of any distress. Able to speak in full sentences. No evidence of an y shortness of breath.
</p>
--- OUTSIDE RECORDS SUMMARY | 2022-08-02 13:58 | XMS_ITS ---
:1975 Author Care Team Providers Name Role Phone DR. PIERO HEWITT Primary Care Provider [phone] PIERO HEWITT Referring Provider [phone] Allergies Code Code System Name Reaction Severity Status Onset NKDA ? Medications Name Status Start Date Stop Date ? ? cholecalciferol (vitamin D3) 125 mcg (5,000 unit) capsule Active ? Not available TAKE 1 CAPSULE BY MOUTH EVERY DAY cyanocobalamin (vit B-12) 1,000 mcg sublingual tablet Active ? Not available PLACE 1 TABLET UNDER TONGUE AND ALLOW T O DISSOLVE FOR AT LEAST30 SECS BEFORE SWALLOWING dextroamphetamine-amphetamine 15 mg tablet Completed ? 06/20/2022 TAKE 1 TABLET BY MOUTH TWICE DAILY docusate sodium 100 mg capsule Active ? N ot available TAKE 1 CAPSULE BY MOUTH EVERY DAY Problems None recorded. Procedures Date Name Performed by ? ? Breast Reduction Information not avai lable ? Section Information not avai lable Notes: X3 Results Lab Results None recorded. Past Encounters 06/20/2022 Obstructive Sleep Apnea of Adult Tim Murillo MD: [address], [address], [place] [address], Ph. Social History Tobacco Smoking Status Never Smoker Vaccine List None recorded. Plan of Care Reminders Provider Appointments None recorded. ? ? Lab None recorded. ? ? Referral None recorded. ? ? Procedures None recorded. ? ? Surgeries None recorded. ? ? Imaging None recorded. ? ? Vitals Height Weight BMI 5 ft 7 in 225 lbs 35.2 kg/m2
== END 2022-07-28 09:20 | disposition home or self-care (01) | DRG 621 ==
LOC: HO.SSSA 10:01 → HO.S3 11:22
PROVIDERS: Anesthesiology; Physician Assistant; Physician Assistant Surgical; Admitting Provider Surgery; PCP Family Medicine; Visit Provider Surgery
PROC: 0DB64Z3 Excision of Stomach, Percutaneous Endoscopic Approach, Vertical (ICD-10-PCS; CPT 43845; principal; 2022-07-27 07:30)
DX: E66.01 Morbid (severe) obesity due to excess calories (principal); J84.10 Pulmonary fibrosis, unspecified; G47.30 Sleep apnea, unspecified; Z68.36 Body mass index [BMI] 36.0-36.9, adult; Z20.822 Contact with and (suspected) exposure to COVID-19; Z79.899 Other long term (current) drug therapy
CPT/HCPCS: 36415; 80048; 80053; 80061; 81025; 83036; 83525; 84443; 85014; 85018; 85025; 85610; 85730; 86140; 86850; 86900; 86901; 87635; 88307; 88342; A4649; C9088; J0131; J0690; J1100; J1170; J2250; J2370; J2405; J2550; J2765; J2795; J3010

== ENCOUNTER → 2022-08-15 14:52 | Outpatient (BNVA) | payer OTHER, SELFPAY | PROVIDERS: PCP Family Medicine; Visit Provider Dietitian, Registered | DX: E66.9 Obesity, unspecified (principal); Z68.32 Body mass index [BMI] 32.0-32.9, adult | CPT/HCPCS: 97803 ==

== ENCOUNTER → 2022-08-28 14:55 | Outpatient (BNVA) | payer OTHER, SELFPAY | PROVIDERS: PCP Family Medicine; Visit Provider Dietitian, Registered | DX: E66.9 Obesity, unspecified (principal); Z68.31 Body mass index [BMI] 31.0-31.9, adult | CPT/HCPCS: 97803 ==

== ENCOUNTER → 2022-09-13 14:22 | Outpatient (BNVA) | payer OTHER, SELFPAY | PROVIDERS: PCP Family Medicine; Visit Provider Dietitian, Registered | DX: E66.9 Obesity, unspecified (principal) | CPT/HCPCS: 97803 ==

== ENCOUNTER → 2022-10-16 08:36 | Outpatient (BNVA) | payer OTHER, SELFPAY | PROVIDERS: PCP Family Medicine; Visit Provider Dietitian, Registered | DX: E66.3 Overweight (principal); Z68.29 Body mass index [BMI] 29.0-29.9, adult | CPT/HCPCS: 97803 ==

== ENCOUNTER → 2022-12-11 08:41 | Outpatient (BNVA) | payer OTHER, SELFPAY | PROVIDERS: PCP Family Medicine; Visit Provider Dietitian, Registered | DX: E66.9 Obesity, unspecified (principal); Z68.30 Body mass index [BMI] 30.0-30.9, adult | CPT/HCPCS: 97803 ==

== ENCOUNTER → 2022-12-29 08:18 | Outpatient (BNVA) | payer OTHER, SELFPAY | PROVIDERS: PCP Family Medicine; Visit Provider Dietitian, Registered | DX: E66.3 Overweight (principal); F50.81 Binge eating disorder | CPT/HCPCS: 97803 ==

== ENCOUNTER → 2023-01-15 11:04 | Outpatient (BNVA) | payer OTHER, SELFPAY | PROVIDERS: PCP Family Medicine; Visit Provider Dietitian, Registered | DX: E66.3 Overweight (principal) | CPT/HCPCS: 97803 ==

== ENCOUNTER 2023-02-01 09:57 | Outpatient (REF) | payer OTHER, SELFPAY ==
[2023-02-01 12:17] LABS: Iron 84 mcg/dL (30-160); Percent Iron Saturation 25 % (15-50); Total Iron Binding Capacity 335 mcg/dL (228-428); Unsaturated Iron Binding 251 ug/dL
[2023-02-01 12:33] LABS: Ferritin 22 ng/mL (10-250); Folate 16.7 ng/mL (> or = 4.0); Vitamin B12 614 pg/mL (200-900)
[2023-02-06 00:54] LABS: Zinc 79 mcg/dL (60-130)
[2023-02-07 16:04] LABS: Vitamin A 30 mcg/dL (38-98)
[2023-02-08 05:54] LABS: Vitamin B1 13 nmol/L (8-30)
== END 2023-02-01 09:58 | disposition home or self-care (01) ==
LOC: HO.LAB 09:57
PROVIDERS: Absent Provider Surgery; PCP Family Medicine; Visit Provider Physician Assistant Surgical
DX: E66.3 Overweight (principal); Z98.84 Bariatric surgery status; F50.81 Binge eating disorder
CPT/HCPCS: 36415; 82306; 82607; 82728; 82746; 83540; 84425; 84590; 84630

== ENCOUNTER → 2023-02-08 11:02 | Outpatient (BNVA) | payer OTHER, SELFPAY | PROVIDERS: PCP Family Medicine; Visit Provider Dietitian, Registered | DX: F50.81 Binge eating disorder (principal); Z71.3 Dietary counseling and surveillance | CPT/HCPCS: 97803 ==

== ENCOUNTER → 2023-03-12 10:40 | Outpatient (BNVA) | payer OTHER, SELFPAY | PROVIDERS: PCP Family Medicine; Visit Provider Dietitian, Registered | DX: E66.3 Overweight (principal); Z98.84 Bariatric surgery status; Z71.3 Dietary counseling and surveillance | CPT/HCPCS: 97803 ==

== ENCOUNTER → 2023-09-13 10:34 | Outpatient (BNVA) | payer OTHER, SELFPAY | PROVIDERS: PCP Family Medicine; Visit Provider Dietitian, Registered | DX: E66.09 Other obesity due to excess calories (principal); F50.81 Binge eating disorder; E53.8 Deficiency of other specified B group vitamins; E55.9 Vitamin D deficiency, unspecified; Z68.37 Body mass index [BMI] 37.0-37.9, adult; Z71.3 Dietary counseling and surveillance | CPT/HCPCS: 97803 ==

== ENCOUNTER → 2023-09-17 08:37 | Outpatient (BNVA) | payer OTHER, SELFPAY | PROVIDERS: PCP Family Medicine; Visit Provider Physician Assistant Surgical ==

== ENCOUNTER → 2023-10-01 08:28 | Outpatient (BNVA) | payer OTHER, SELFPAY | PROVIDERS: PCP Family Medicine; Visit Provider Dietitian, Registered | DX: E66.9 Obesity, unspecified (principal); Z98.84 Bariatric surgery status; Z71.3 Dietary counseling and surveillance | CPT/HCPCS: 97803 ==

== ENCOUNTER → 2023-10-08 08:28 | Outpatient (BNVA) | payer OTHER, SELFPAY | PROVIDERS: PCP Family Medicine; Visit Provider Physician Assistant Surgical ==

== ENCOUNTER → 2023-11-06 08:32 | Outpatient (BNVA) | payer OTHER, SELFPAY | PROVIDERS: PCP Family Medicine; Visit Provider Physician Assistant Surgical ==

== ENCOUNTER → 2023-11-13 08:32 | Outpatient (BNVA) | payer OTHER, SELFPAY | PROVIDERS: PCP Family Medicine; Visit Provider Physician Assistant Surgical ==

== ENCOUNTER → 2023-11-20 08:41 | Outpatient (BNVA) | payer OTHER, SELFPAY | PROVIDERS: PCP Family Medicine; Visit Provider Physician Assistant ==

== ENCOUNTER → 2023-11-27 08:29 | Outpatient (BNVA) | payer OTHER, SELFPAY | PROVIDERS: PCP Family Medicine; Visit Provider Physician Assistant ==

== ENCOUNTER 2024-01-31 11:12 | Outpatient (AMB) | payer OTHER, SELFPAY ==
--- NOTE | 2024-01-31 11:05 | MHC.AMNUTRGE ---
Intake Intake Visit Reasons: VIDEO PO LSG 07/27/22 Allergies No Known Allergies Allergy (Verified 02/01/23 10:01) HPI Nutrition Presentation Details LSG (07/27/22) Preop weight 219# weight at 1wk PO 210 Weight at 6wks PO 188# weight at 12wks PO 181# weight at 4.5MO 188 Last weight March 186# current weight 193# Pts goal weight 165#, Reason for consult elevated BMI Diet Assmnt Details Pt reports she was just approved for Zepbound and will be picking it up on Sunday . We discussed some common side effects and nutrition recommendations Previous nutrition appts: reports she is still snacking a lot, we talked about identifying if its emotional or true hunger. talked about self monitoring tools, holding herself accountable Vitamins: None. was previously doing 2 Flintstones, B complex, additional vitamin A least 8000 IU, plus calcium with vitamin-D Lab order is in the system, pt has been forgetting to get her labs drawn Exercise: has kept up with her exercise routine Hydration: 64oz Dietary counseling reduction Diagnosis Nutrition problem #1 overweight/obesity As related to (etiology) #1 excess energy intake and physical inactivity As evidenced by (sign/symptom) #1 high BMI (resolving) Monitoring/Goals Nutrition problem monitoring total energy intake, level of knowledge/skill, total PRO intake, total CHO intake and weight Outcome progress progressing Learning/Education Readiness to learn excellent Stages of change preparation Most Recent Diabetes Results: No Data to Display [facility] Medical History (Updated 02/01/23 @ 10:31 by DELVIN Boss) BMI 36.0-36.9,adult Obesity Sleep apnea BMI 37.0-37.9, adult Binge-eating disorder, mild Constipation Vitamin B12 deficiency Vitamin D deficiency Surgical History Hx of breast reduction, elective Hx of section Family History Mother No problems noted. Father Hypertension High cholesterol Social History (Updated 02/01/23 @ 10:02 by Alessia Ngo CMA) Are you a primary customer care representative to a significant other at home: No Do you presently have visiting nurse or other home services: No Alcohol intake: former Patient Tobacco Use Status: Never used Tobacco service: No Current occupational status: employed Assessment & Plan Assessment & Plan (1) Obesity (BMI 30-39.9): Code(s): E66.9 - Obesity, unspecified Plan Pt is starting Zepbound prescribed through an outside provider. She reports she was not previously educated about the side effects and nutrition recommendations so this was provided today. She will maintain a high protein , structured eating plan. get labs done. will f/u with PA or RD prn Telehealth Telehealth Location of provider rendering services: practice address Location of patient: address on file Patient Identification confirmed using: Name, : Yes Telehealth method: video Patient verbally consented to treatment: Yes Patient verbally consented to billing insurance company: Yes Patient informed of any privacy concerns related to visit: Yes Minutes spent on Phone/Video with Pt.: 20 Coding Level of Care Code Nutr Indiv Subseq ([id number]) Diagnoses Obesity (BMI 30-39.9) E66.9 Time Spent (min) 20
== END 2024-01-31 11:20 | disposition home or self-care (01) ==
LOC: HO.HBS 11:12
PROVIDERS: PCP Family Medicine; Visit Provider Dietitian, Registered
DX: E66.9 Obesity, unspecified (principal)

== ENCOUNTER → 2024-01-31 11:12 | Outpatient (BNVA) | payer OTHER, SELFPAY | PROVIDERS: PCP Family Medicine; Visit Provider Dietitian, Registered | DX: E66.9 Obesity, unspecified (principal); Z98.84 Bariatric surgery status; Z71.3 Dietary counseling and surveillance | CPT/HCPCS: 97803 ==

== ENCOUNTER 2024-09-09 08:18 | Outpatient (REF) | payer OTHER, SELFPAY ==
[2024-09-09 08:38] LABS: MANUAL DIFF FLAG NO
[2024-09-09 08:56] LABS: Basophils Percent Auto 0.4 % (0-2); Eosinophils Absolute Auto 0.2 X10*3/uL (0.0-0.4); Eosinophils Percent Auto 3.8 % (0-4); Hematocrit 33.3 % (37.0-47.0); Imm Gran Abs Auto 0.01 X10*3/uL (0.00-0.03); Imm Gran Pct Auto 0.2 % (0.0-0.4); Lymphocytes Absolute Auto 1.4 X10*3/uL (1.2-4.9); Lymphocytes Percent Auto 31.3 % (20-40); Mean Corpuscular Hemoglobin 27.2 pg (27.0-33.0); Mean Corpuscular Volume 82.4 fL (80.0-98.0); Mean Platelet Volume 9.7 fL (9.4-12.3); Monocytes Absolute Auto 0.3 X10*3/uL (0.1-1.2); Neutrophils Absolute Auto 2.6 x10*3/uL (2.0-8.3); Neutrophils Percent Auto 58.3 % (45-73); Platelet Count 218 X10*3/uL (160-400); Red Blood Count 4.04 X10*6/uL (4.20-5.50); Red Cell Distribution Width 13.3 % (11.0-16.0); White Blood Count 4.5 X10*3/uL (4.8-10.8)
[2024-09-09 09:10] LABS: Estimated Average Glucose 111 mg/dL; Hemoglobin A1c % 5.5 % (<6.0); Total Hemoglobin (HGBA1C) 2884.7909 umol/L
[2024-09-09 09:39] LABS: Alanine Aminotransferase 21 U/L (0-31); Albumin Level 4.2 g/dL (3.5-5.0); Alkaline Phosphatase 59 U/L (39-117); Anion Gap 11 (12-20); Aspartate Amino Transferase 32 U/L (5-31); Bilirubin Total 0.4 mg/dL (0.0-1.0); Blood Urea Nitrogen 11 mg/dL (9-16); C Reactive Protein < 0.10 mg/dL (< or = 0.50); Calcium 9.3 mg/dL (8.4-10.2); Carbon Dioxide 24 mmol/L (22-29); Chloride 107 mmol/L (96-108); Cholesterol 173 mg/dL (<200); Estimated Glomerular Filt Rate > 60; Glucose Random 86 mg/dL (60-115); HDL Cholesterol 57 mg/dL (>40); Iron 38 mcg/dL (30-160); LDL Cholesterol Calculated 110 mg/dL (<100); Percent Iron Saturation 10 % (15-50); Sodium 138 mmol/L (135-145); Total Iron Binding Capacity 375 mcg/dL (228-428); Total Protein 7.4 g/dL (6.5-8.0); Triglycerides 32 mg/dL (<150); Unsaturated Iron Binding 337 ug/dL
[2024-09-09 09:54] LABS: Ferritin 4 ng/mL (10-250); Folate 16.9 ng/mL (> or = 4.0); TSH reflex Free T4 1.09 uIU/mL (0.32-4.0); Vitamin B12 864 pg/mL (200-900); Vitamin D 25-OH Total 27.9 ng/mL (>30)
[2024-09-09 11:17] LABS: Insulin 6 uU/mL (2-29)
[2024-09-13 02:54] LABS: Zinc 62 mcg/dL (60-130)
[2024-09-15 01:49] LABS: Vitamin A 33 mcg/dL (38-98)
[2024-09-15 13:03] LABS: Vitamin B1 7 nmol/L (8-30)
== END 2024-09-09 08:19 | disposition home or self-care (01) ==
LOC: HO.LAB 08:18
PROVIDERS: PCP Family Medicine; Visit Provider Physician Assistant Surgical
DX: Z98.84 Bariatric surgery status (principal); Z13.1 Encounter for screening for diabetes mellitus; Z13.29 Encounter for screening for other suspected endocrine disorder
CPT/HCPCS: 36415; 80053; 80061; 82306; 82607; 82728; 82746; 83036; 83525; 83540; 84425; 84443; 84590; 84630; 85025; 86140

== ENCOUNTER 2024-09-22 08:57 | Outpatient (AMB) | payer OTHER, SELFPAY ==
--- NOTE | 2024-09-22 09:01 | A.OFFVIS_ITS ---
VS Expanded 09/22/24 09:24 BP 139/79 Blood Pressure Location Rt brachial Blood Pressure Position Sitting Pulse 67 Pulse Source Pulse Oximeter Temp 96.9 F Temperature Source Temporal Artery Scan Pulse Oximetry 98 Oxygen Delivery Method Room Air Height 5 ft 6 in Weight 163 lb 6.4 oz BMI 26.4 Body Fat % 32.8 Body Fat Mass 53.6 Fat Free Mass 109.8 Visceral Fat Rating 6.0 Body Water % 47.9 Body Water Mass 78.2 Muscle Mass/Score 104.2 Basal Metabolic Rate/Score 1,482 Intake Visit Reasons: (OV) PO LSG 07/27/22 Allergies No Known Allergies Allergy (Verified 09/22/24 09:06) Medication List - Last Reconciled 09/22/24 by DELVIN Boss tirzepatide (weight loss) (Zepbound) 10 mg subcut QWEEK HPI Comments Details: This?is a?49?yo female who is s/p LSG on?07/27/2022. Presents for 2 year 2 month post op visit. Weight loss of 29.6 lbs since last OV 8 months ago.? No complaints of nausea, emesis, abdominal pain or reflux, or constipation. Pt was started on Zepbound since last visit. Feels fine on it, no side effects. Started February 03. Pt also reports weight of 168lbs on 08/25/2024 (confirmed with [employer] screenshot she texted to me). Present meal plan includes: pt recognizes she is not getting enough protein restarted Parminder benjamin recently Exercise routine includes: meets with a animal attendants and trainers once a week also does weights 3x/week, walks a few times a week Pt reports problems with excess skin of abdomen. She notices moisture collecting in the skin folds that develops an unpleasant odor, has to clean frequently, difficult to keep clean, often itchy. Pt experiences difficulties with activities of daily living, including walking which is more difficult with the excess skin getting in the way. The weight of the excess skin causes back pain due to the heaviness of it. Has to wear compressive waistband to hold skin in place to prevent discomfort from movement when she is performing normal daily activities. GERD Score 0-5: 0=no symptoms, 1=noticeable but not bothersome (slight or occasional), 2=noticeable, bothersome but not daily, 3=bothersome and daily, 4=affects daily activities, 5=incapacitating, unable to do daily activities How bad is the heartburn: 0 Heartburn when lying down: 0 Heartburn when standing up: 0 Heartburn after meals: 0 Does heartburn change your diet: 0 Does heartburn wake you up from sleep: 0 Do you have difficulty swallowin Do you have pain with swallowin If you take medication for reflux, does this affect your daily life: 0 Total score: 0 PFSH Medical History (Updated 09/22/24 @ 09:50 by DELVIN Boss) BMI 36.0-36.9,adult Obesity Sleep apnea BMI 37.0-37.9, adult Binge-eating disorder, mild Constipation Vitamin B12 deficiency Vitamin D deficiency Surgical History Hx of breast reduction, elective Hx of section Family History Mother No problems noted. Father Hypertension High cholesterol Social History (Updated 09/22/24 @ 09:08 by Alessia Ngo CMA) Are you a primary daycare director to a significant other at home: No Do you presently have visiting nurse or other home services: No Alcohol intake: current Alcohol intake frequency: holidays/special occasions only Patient Tobacco Use Status: Never used Tobacco service: No Current occupational status: employed Physical Exam Const General: cooperative, comfortable and no acute distress Orientation/consciousness: patient oriented x3 GI Other: soft, nontender, nondistended, incisions well healed, no hernia, no masses Grade II pannus Neuro General: patient oriented x3 Assessment & Plan Assessment & Plan (1) Overweight: Code(s): E66.3 - Overweight Category: Medical (2) S/P laparoscopic sleeve gastrectomy: Code(s): Z98.84 - Bariatric surgery status Category: Medical (3) Excess skin: Code(s): L98.7 - Excessive and redundant skin and subcutaneous tissue Category: Medical Plan Pt needs a meal plan with 65-70g protein per day, she recognizes she is low. Labs reviewed, vit A/B1/D supplemented and pt will obtain a keila MVI with 45mg iron. Clotrimazole ointment for any rashes that may occur with excess skin. RTC 3 months, can recheck labs and follow up on adequate meal plan as well as excess skin issues. I spent a total of 30 minutes reviewing/updating records, examining the patient and counseling the patient on weight management as detailed above. Medications: New cholecalciferol (vitamin D3) 50 mcg PO DAILY 90 caps 3RF vitamin A palmitate 10,000 units PO DAILY 90 caps 0RF thiamine HCl (vitamin B1) 100 mg PO DAILY 90 tabs 3RF clotrimazole 1% 1 appl topical BID 45 grams 3RF
[2024-09-22 09:24] VITALS: BP 139/79; PULSE 67; TEMP 36.1; O2SAT 98; BMI 26.4
== END 2024-09-22 09:50 | disposition home or self-care (01) ==
PROVIDERS: PCP Family Medicine; Visit Provider Physician Assistant Surgical
DX: E66.3 Overweight (principal); Z98.84 Bariatric surgery status; L98.7 Excessive and redundant skin and subcutaneous tissue
CPT/HCPCS: 99214

== ENCOUNTER 2024-12-30 09:30 | Outpatient (AMB) | payer OTHER, SELFPAY ==
--- NOTE | 2024-12-30 09:31 | MHC.OFFVISWM ---
VS Expanded 12/30/24 09:35 BP 121/70 Blood Pressure Location Lt brachial Blood Pressure Position Sitting Pulse 80 Pulse Source Pulse Oximeter Pulse Oximetry 98 Height 5 ft 6 in Weight 163 lb 6.4 oz BMI 26.4 Body Fat % 31.6 Body Fat Mass 51.6 Fat Free Mass 111.8 Visceral Fat Rating 6.0 Body Water % 48.6 Body Water Mass 79.4 Muscle Mass/Score 106.0 Basal Metabolic Rate/Score 1,503 Intake Visit Reasons: (OV) PO LSG 07/27/22 Allergies No Known Allergies Allergy (Verified 12/30/24 09:34) Medication List - Last Reconciled 12/30/24 by DELVIN Boss cholecalciferol (vitamin D3) 50 mcg PO DAILY clotrimazole 1% 1 appl topical BID thiamine HCl (vitamin B1) 100 mg PO DAILY tirzepatide (weight loss) (Zepbound) 10 mg subcut QWEEK vitamin A palmitate 10,000 units PO DAILY HPI Comments Details: This?is a?49?yo female who is s/p LSG on?07/27/2022. Presents for 2 year 2 month post op visit. Weight today is same as last OV 3mo ago. Pt was started February 03 on Zepbound. Pt also reports weight of 168lbs on 08/25/2024 (confirmed with [employer] screenshot she texted to me). 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 Present meal plan includes: restarted [employer] recently Exercise routine includes: meets with a computer trainer once a week also does weights 3x/week, walks a few times a week Pt reports problems with excess skin of abdomen. She notices moisture collecting in the skin folds that develops an unpleasant odor, has to clean frequently, difficult to keep clean, often itchy. Pt experiences difficulties with activities of daily living, including walking which is more difficult with the excess skin getting in the way. The weight of the excess skin causes back pain due to the heaviness of it. Has to wear compressive waistband to hold skin in place to prevent discomfort from movement when she is performing normal daily activities. [facility] Medical History BMI 36.0-36.9,adult Obesity Sleep apnea BMI 37.0-37.9, adult Binge-eating disorder, mild Constipation Vitamin B12 deficiency Vitamin D deficiency Surgical History Hx of breast reduction, elective Hx of section Family History Mother No problems noted. Father Hypertension High cholesterol Social History Are you a primary pediatric critical care nurse to a significant other at home: No Do you presently have visiting nurse or other home services: No Alcohol intake: current Alcohol intake frequency: holidays/special occasions only Patient Tobacco Use Status: Never used Tobacco service: No Current occupational status: employed Physical Exam Vital Signs: Last Vital Signs Pulse 80 12/30/24 09:35 BP 121/70 12/30/24 09:35 Pulse Ox 98 12/30/24 09:35 BMI result Body Mass Index 26.4 Assessment & Plan Assessment & Plan (1) Excess skin: Code(s): L98.7 - Excessive and redundant skin and subcutaneous tissue Category: Medical (2) Overweight: Code(s): E66.3 - Overweight Category: Medical (3) S/P laparoscopic sleeve gastrectomy: Code(s): Z98.84 - Bariatric surgery status Category: Surgical Plan Pt is experiencing issues of excess skin of abdomen, resulting in frequent painful rashes refractory to topical Rx treatment. She is also experiencing difficulties with activities of daily living including walking due to discomfort from the excess skin. She would benefit from panniculectomy. Pt would like to wait on skin removal surgery. 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 Weight has remained stable. CBC and vitamin labs ordered to recheck. RTC in Jul for annual. I spent a total of 30 minutes reviewing/updating records, examining the patient and counseling the patient on weight management as detailed above. Orders: Orders Vitamin B12 and Folate Today Z98.84 - Bariatric surgery status Vitamin A Today Z98.84 - Bariatric surgery status Vitamin D 25-OH Total Today Z98.84 - Bariatric surgery status Complete Blood Count Auto Diff Today Z98.84 - Bariatric surgery status Vitamin B1 Today Z98.84 - Bariatric surgery status Zinc Today Z98.84 - Bariatric surgery status
[2024-12-30 09:35] VITALS: BP 121/70; PULSE 80; O2SAT 98; BMI 26.4
--- OUTSIDE RECORDS SUMMARY | 2024-12-30 10:38 | XMS_ITS | Data Portability ---
Author Organization [employer] [employer] Address [address] [place] [address] Care Team Providers Care Church History Professor Name Role Phone PIERO HEWITT Primary Care Provider [phone] PIERO HEWITT Referring Provider [phone] Assessment No assessment recorded. Plan of Treatment Reminders Order Date Submit Date Provider Last Modified By Organization Details Last Modified Time Details Appointments None record ed. Lab None record ed. Referral None record ed. Procedures None record ed. Surgeries None record ed. Imaging None record ed. Medication Orders None record ed. Patient TargetsNo targets recorded. Patient InstructionsNo instructions recorded. Reason for Referral None Reported. Results Created Date Observation Date Name Description Value Unit Range Abnormal Flag Note LastModifiedBy Organization Detail LastModifiedTime 06/16/20 22 04/20/2022 home sleep study No observ ation record ed. [email or web address] Not Available 10/2022 11:57:54 Result Notes None recorded. Procedures Surgical History Date Name Laterality Status Provider Name and Address Organization Details Recorded Time section completed Evi Mendoza [employer] 06/20/2022 13:37:16 Breast reduction completed Evi Mendoza [facility] 06/20/2022 13:37:21 Imaging Results Imaging Date Name Status LastModified by Organiz ation Details LastModified Time 04/20/2022 home sleep study completed [email or web address] Information not available 06/16/2022 11:57:54 Procedure Notes None recorded. Medical Equipment None Reported. Allergies No known drug allergies Medications Name Sig Start Date Stop Date Status Note LastModified by Organization Details LastModified Time dextroamphe tamine-amph etamine 15 mg tablet TAKE 1 TABLET BY MOUTH TWICE DAILY 06/20 completed Not Available Not Available Not Available docusate sodium 100 mg capsule TAKE 1 CAPSULE BY MOUTH EVERY DAY active Not Available Not Available No t Available cyanocobala min (vit B-12) 1,[address] 1 TABLET UNDER TONGUE AND ALLOW TO DISSOLVE FOR AT LEAST30 SECS BEFORE SWALLOWIN G active Not Available Not Available No t Available cholecalcif cristina (vitamin D3) 125 mcg (5,000 unit) capsule TAKE 1 CAPSULE BY MOUTH EVERY DAY active Not Available Not Available No t Available Vitals Date Recorded Body height Body mass index (BMI) Body weight Provider Name and Address Organization Details Last Updated DateTime 06/20/2022 170.18 cm 35.2 kg/m2 624373.28 g vEi Mendoza [facility] [employer] 06/20/2022 13:35:03 Social History Question Answer Notes LastModified by Organizat ion Details LastModified Time Tobacco Smoking Status Never Smoker Evi almeida [facility] [employer] 06/20/2022 13:36:46 What Is Your Level Of Alcohol Consumption? Occasional [email or web address] Information not available 06/20/2022 Are You Currently Employed? Yes [email or web address] Information not available 06/20/2022 Have You Been Exposed To Chemicals Or Toxins? No Information not available 06/20/2022 Have You Been Exposed To Heavy Metals? 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 No [email or web address] Information not available 06/20/2022 Are You Passively Exposed To Smoke? No [email or web address] Information no t available 06/20/2022 Do You Or Have You Ever Used Any Other Forms Of Tobacco Or Nicotine? Yes [email or web address] Information not available 06/20/2022 Sex: Unknown Functional Status None recorded. Mental Status None recorded. Family History Relationship Description Onset Age of this Age Resolved Age Notes LastModified by Organization Details LastModified Time Mother Amyotrophic lateral sclerosis [email or web address] Not available 06/20 13:36:14 Brother Neoplasm of brain [email or web address] Not available 06/20 13:36:22 Medical History No medical history recorded. Gynecological HistoryNo gynecological history recorded. Obstetrics History GPAL:G 0 P 0 0 0 0 Past Encounters Encounter ID Performer Location Encounter Start Date Encounter Closed Date Diagnosis/Indication Diagnosis SNOMED-CT Code Diagnosis ICD10 Code Diagnosis Note [id number] Tim Murillo MD [facility] [address] [place] [address] 06/20/2022 13:33:01 06/20/2022 14:05:38 Obstructive sleep apnea of adult 4423333008 103 G47.33 The findings of the sleep study were discussed with the patient. I discussed the risks of having obstructiv e sleep apnea including stroke, atrial fibrillati on, hypertensi on, all cardiovasc ular , cognitive impairment as well as glaucoma. I also discussed various symptoms including excessive daytime sleepiness , unrefreshi ng sleep, waking up gasping for air, increased risk of drowsy driving and daytime impairment . I also discussed various treatment options including weight loss, various surgical procedures including inspire, positional therapies, oral mandibular advancemen t devices as well as Pap therapy. In addition, we spoke about EPAP devices. She wants to think about which device she wants and will get back to me. Health Concerns Section Related Observation LastModified by Organization Detai ls LastModified Time None Recorded Concern Status LastModified by Organization Details LastModified Time None Recorded Advance Directives Directive None Recorded Payers Encounter Date Sequence Insurance Name Policy Number Policy Smith Covered Member ID Smith Member ID Guarantor Name 06/20/2022 1 [facility] ([facility] [id number] 1 Tino Wright [id number] Martha Wright Notes Date Note Type Note Provider Name and Address Organization Details Recorded Time 2 text/html [facility] Sleep Apnea NewReported bypatient.Reason for visit:The patient is a 46 year old female who I am seeing for; obstructive sleep apnea The patient has been experiencingexcessive daytime sleepiness; fatigue; loud snoring; She is being evaluated for a gastric sleeve and ended up w/ an HSAT as part of the pre-op. Onset/Timing:initially started years ago Severity:difficulty getting going in the morning General Sleep:Typical bedtime is 10 PM; Typical wake time is 7 AM; awakening in the middle of the night yes.; naps during day no. Breathing at nightloud snoring ENT symptomsno nasal passage blockage; no throat pain HSAT showedmoderate KATHYA.;Rohith sat %: 85 .;There was a total number of apneas and hypopneas of 133 .;AHI was 17.[address] telemedicine statementReported bypatient.This visit was conducted viavideo with audio Billing discussion:The patient was informed that this visit would be billed to the patient's insurance company and consented to such. Location of provider and patient:I have informed the patient of my location as my office.; I have ascertained the location of the patient during this office visit. Patient was informed ofthe choice of an in-person appointment or remote clinic visit; any relevant privacy considerations and that in the event of an emergency they can be seen in person Patient choice:after the above discussion, the patient gave informed consent to a telemedicine visit and wished to proceed. Provider:office Patient:home Attendees during visit:provider; patient PMH; SH; FH; and pertinent labs:were reviewed by me personally, both prior to the encounter and again with the patient during the visit. iTm Murillo MD [address] [facility], [place], [address], [place] - [facility] 06/20/2022 13:57:25 OBGyn Episode No OBEpisode recorded.
--- OUTSIDE RECORDS SUMMARY | 2024-12-30 10:38 | XMS_ITS ---
Author Organization [facility] Address [address] [place] [address] Care Team Providers Care Spanish Lecturer Name Role Phone Giovanny HUNTER, Marco Antonio Primary Care Provider Unavailab Kirti Chaudhry [phone] Encounters Encounter Location Date Provider Diagnosis [address] [address] 09/04/2023 Kirti Sales Plan Of Treatment No Information Progress Notes * Taylor WRIGHTOB: [birth year] (49 yo F)Acc No.[id number]:09/04/2023 Progress Notes Patient:?Martha WRIGHT Provider:?Kirti Sales DPM :1975???Age:48 Y???Sex:Female D ate:09/04/2023 Address:[address] [facility] Pcp:Marco Antonio Baltazar MD Subjective: * Chief Complaints: * ??? * Medical History:? Objective: * Vitals:? Assessment: Plan: * Treatment: * Images: * The named appointment provid er may or may not be the originator of this progress note, and it is not deemed complete until electronically signed by the appointment provider. Sign off status: Pending * Provider:?Kirti Sales DPM Date:?2022 Generated for Margoi ambrocio/Dayne/eTransmitting on:?12/30/2024 10:38 AM EST
--- OUTSIDE RECORDS SUMMARY | 2024-12-30 10:38 | XMS_ITS | Clinical Summary ---
Author Organization [facility] Address [address] [place] [address] Care Team Providers Care Cooling Pipe Inspector Name Role Phone Unavailable Primary Care Provider Unavailabl e Medications No known medications Social History Tobacco Use Types Packs/Day Years Used Date Smoking Tobacco: Never Assessed Comments Unknown Sex and Gender Information Value Date Recorded Sex Assigned at Not on file Legal Sex Female 8:58 AM EST Gender Identity Not on file Sexual Orientation Not on file Plan of Treatment Health Maintenance Due Date Last Done Comments Hepatitis C Screening 1975 Pap Smear 1991 DTaP/Tdap/Td (1 - Tdap) 1993 Hep B (1 of 3 - 19+ 3-dose series) 1994 Mammogram/Breast Imaging 2015 COVID-19 Vaccine ( - 2023-2 5 season) 2024 Influenza (#1) 2024 Zoster (Shingrix) (1 of 2) 2025 HPV Vaccine Aged Out No longer eligi ble based on patient's age to complete this topic Hep A Aged Out No longer eligi ble based on patient's age to complete this topic Hib Aged Out No longer eligi ble based on patient's age to complete this topic Meningococcal ACWY Aged Out No longer eligible based on patient's age to complete this topic Pneumococcal Aged Out No longer eligi ble based on patient's age to complete this topic [facility]
--- OUTSIDE RECORDS SUMMARY | 2024-12-30 10:38 | XMS_ITS ---
Author Organization [facility] Address [address] [place] [address] Care Team Providers Care Speech Language Therapist Name Role Phone Giovanny HUNTER, Marco Antonio Primary Care Provider Unavailab Kirti Chaudhry [phone] Encounters Encounter Location Date Provider Diagnosis [address] [address] 11/27/2023 Kirti Sales Plan Of Treatment No Information Progress Notes * Gisela WRIGHTPioOB: [birth year] (49 yo F)Acc No.[id number]:11/27/2023 Progress Notes Patient:?Martha WRIGHT Provider:?Kirti Sales DPM :1975???Age:48 Y???Sex:Female D ate:11/27/2023 Address[address] [facility] Pcp:Marco Antonio Baltazar MD Subjective: * Chief Complaints: * ??? * Medical History:? Objective: * Vitals:? Assessment: Plan: * Treatment: * Images: * The named appointment provid er may or may not be the originator of this progress note, and it is not deemed complete until electronically signed by the appointment provider. Sign off status: Pending * Provider:?Kirti Sales DPM Date:?2023 Generated for Margoi ambrocio/Dayne/eTransmitting on:?12/30/2024 10:38 AM EST
--- OUTSIDE RECORDS SUMMARY | 2024-12-30 10:38 | XMS_ITS ---
Author Organization [facility] Address [address] [place] [address] Care Team Providers Care Novelty Candy Maker Name Role Phone Marco Antonio Baltazar MD Primary Care Provider Unavailab le Black, Kirti Unavailable [phone] REASON FOR VISIT CX 11/27/23 Encounters Encounter Location Date Provider Diagnosis [address] [address] 11/26/2023 Kirti Black Plan Of Treatment No Information Progress Notes * Taylor WRIGHTOB: [birth year] (48 yo F)Acc No.[id number]:11/26/2023 Patient:?Aniyah Wrightlou :1975???Age:48 Y???Sex:Female Address:[address] [place], [address] * true * Date:? Generated for Margoi ambrocio/Dayne/eTransmitting on:?12/30/2024 10:38 AM EST
--- OUTSIDE RECORDS SUMMARY | 2024-12-30 10:38 | XMS_ITS | Patient Health Record ---
Author Organization [facility] Address [address] [place] [address] Care Team Providers Care Office Communication Professor Name Role Phone Marco Antonio Baltazar MD Primary Care Provider Unavailab burt Kirti Sales Unavailable [phone] Allergies No Known Allergies Reason For Referral No Information Medications Medication SIG (Take, Route, Fr equency, Duration) Notes Start Date End Date Status Cimetidine 400 MG TAKE 1 TABLET BY HOPE TH TWICE A DAY for 90 Active Social History Tobacco Use: Social History Observation Description Date Details (start date - stop date) Never Smoker NA - NA Tobacco Use/Smoking Question Answer Notes Are you a: nonsmoker Alcohol Screen Question Answer Notes Did you have a drink contain ing alcohol in the past year? Yes How often did you have a dri nk containing alcohol in the past year? Monthly or less (1 point) Points 1 Interpretation Negative Tobacco use other than smoking: Question Answer Notes Are you an other tobacco user? No Plan Of Treatment Pending Test Test Name Order Date [id number] Destruction, 1-14 07/16/2023 82153 - Shave Biopsy of Skin Lesion 07/06 Insurance Providers Payer Name Payer Address Payer Phone Subscriber Number Group Number Insured Name Patient Relationship to Insured Coverage Start Date Coverage End Date [employer] ([facility]) [address] [place] [address] [phone] [id number] Martha Wright Self - patient is the insured Medical (General) History Surgical History Surgery Date(Month/Year) Hospitalization History Reason Date(Month/Year) [facility] [place] sleeve 07/2022
== END 2024-12-30 10:16 | disposition home or self-care (01) ==
PROVIDERS: PCP Family Medicine; Visit Provider Physician Assistant Surgical
DX: L98.7 Excessive and redundant skin and subcutaneous tissue (principal); E66.3 Overweight; Z98.84 Bariatric surgery status
CPT/HCPCS: 99214

== ENCOUNTER 2025-07-07 09:17 | Outpatient (REF) | payer OTHER, SELFPAY ==
[2025-07-07 10:20] LABS: MANUAL DIFF FLAG NO
[2025-07-07 11:03] LABS: Hematocrit 33.5 % (37.0-47.0); Hemoglobin 11.1 g/dl (12.0-16.0); Mean Corpuscular HGB Conc 33.1 g/dl (31.0-35.0); Mean Corpuscular Hemoglobin 27.1 pg (27.0-33.0); Mean Corpuscular Volume 81.9 fL (80.0-98.0); Red Blood Count 4.09 X10*6/uL (4.20-5.50); White Blood Count 4.4 X10*3/uL (4.8-10.8)
[2025-07-07 11:04] LABS: Imm Gran Abs Auto 0.01 X10*3/uL (0.00-0.03); Imm Gran Pct Auto 0.2 % (0.0-0.4); Lymphocytes Absolute Auto 1.7 X10*3/uL (1.2-4.9); NRBC Abs Auto 0.000 X10*3/uL (0.0-0.012); NRBC Pct Auto 0.0 /100WBC (0.0-0.2); Platelet Count 187 X10*3/uL (160-400)
[2025-07-07 11:16] LABS: Hemoglobin A1C 104.4577 umol/L; Total Hemoglobin (HGBA1C) 2915.5204 umol/L
[2025-07-07 12:24] LABS: Alanine Aminotransferase 22 U/L (0-31); Albumin Level 4.3 g/dL (3.5-5.0); Alkaline Phosphatase 62 U/L (39-117); Anion Gap 9 (12-20); Aspartate Amino Transferase 27 U/L (5-31); Blood Urea Nitrogen 12 mg/dL (9-16); Calcium 8.8 mg/dL (8.4-10.2); Carbon Dioxide 27 mmol/L (22-29); Chloride 108 mmol/L (96-108); Cholesterol 195 mg/dL (<200); Estimated Glomerular Filt Rate > 60; Ferritin 4 ng/mL (10-250); HDL Cholesterol 60 mg/dL (>40); Iron 45 mcg/dL (30-160); Percent Iron Saturation 12 % (15-50); Potassium 4.3 mmol/L (3.3-5.1); Sodium 140 mmol/L (135-145); Total Iron Binding Capacity 384 mcg/dL (228-428); Total Protein 7.2 g/dL (6.5-8.0); Triglycerides 45 mg/dL (<150); Unsaturated Iron Binding 339 ug/dL
[2025-07-07 12:30] LABS: Folate 14.1 ng/mL (> or = 4.0); Vitamin B12 516 pg/mL (200-900)
== END 2025-07-07 09:18 | disposition home or self-care (01) ==
LOC: HO.LAB 09:17
PROVIDERS: PCP Family Medicine; Visit Provider Physician Assistant Surgical
DX: E66.3 Overweight (principal); L98.7 Excessive and redundant skin and subcutaneous tissue; Z13.1 Encounter for screening for diabetes mellitus; Z98.84 Bariatric surgery status; Z68.26 Body mass index [BMI] 26.0-26.9, adult
CPT/HCPCS: 36415; 80053; 80061; 82306; 82607; 82728; 82746; 83036; 83525; 83540; 84425; 84443; 84590; 84630; 85025; 86140

== ENCOUNTER 2025-07-07 09:17 | Outpatient (AMB) | payer OTHER, SELFPAY ==
--- NOTE | 2025-07-07 09:20 | A.OFFVIS_ITS ---
VS Expanded 07/07/25 09:45 BP 130/76 Blood Pressure Location Rt brachial Blood Pressure Position Sitting Pulse 72 Pulse Source Pulse Oximeter Temp 97.5 F Temperature Source Temporal Artery Scan Pulse Oximetry 98 Oxygen Delivery Method Room Air Height 5 ft 6 in Weight 166 lb 9.6 oz BMI 26.9 Body Fat % 34.3 Body Fat Mass 57.0 Fat Free Mass 109.4 Visceral Fat Rating 7.0 Body Water % 46.8 Body Water Mass 77.8 Muscle Mass/Score 103.8 Basal Metabolic Rate/Score 1,483 Intake Visit Reasons: (OV) PO LSG 07/27/22 Allergies No Known Allergies Allergy (Verified 12/30/24 09:34) Medication List - Last Reconciled 07/07/25 by DELVIN Boss cholecalciferol (vitamin D3) 50 mcg PO DAILY clotrimazole 1% 1 appl topical BID thiamine HCl (vitamin B1) 100 mg PO DAILY tirzepatide (weight loss) (Zepbound) 12.5 mg subcut QWEEK vitamin A palmitate 10,000 units PO DAILY HPI Comments Details: This?is a?49?yo female who is s/p LSG on?07/27/2022. Presents for 3 year post op visit. Weight gain of 3.2lbs since last OV 6mo ago. Pt was started February 03 on Zepbound. However her insurance is changing and will have to transition to [place] soon. Started a new position at [employer]. Present meal plan includes: uses [email or web address], will eat 1-2 meals per day her work provides food- salad bar, will add chicken...sometimes fried Exercise routine includes: meets with a monkey trainer once a week also does weights 3x/week, walks a few times a week Pt reports problems with excess skin of abdomen. She notices moisture collecting in the skin folds that develops an unpleasant odor, has to clean frequently, difficult to keep clean, often itchy. Pt experiences difficulties with activities of daily living, including walking which is more difficult with the excess skin getting in the way. The weight of the excess skin causes back pain due to the heaviness of it. Has to wear compressive waistband to hold skin in place to prevent discomfort from movement when she is performing normal daily activities. [facility] Medical History BMI 36.0-36.9,adult Obesity Sleep apnea BMI 37.0-37.9, adult Binge-eating disorder, mild Constipation Vitamin B12 deficiency Vitamin D deficiency Surgical History Hx of breast reduction, elective Hx of section Family History Mother No problems noted. Father Hypertension High cholesterol Social History Are you a primary home health care social worker to a significant other at home: No Do you presently have visiting nurse or other home services: No Alcohol intake: current Alcohol intake frequency: holidays/special occasions only Patient Tobacco Use Status: Never used Tobacco service: No Current occupational status: employed Physical Exam Const General: cooperative, comfortable and no acute distress Orientation/consciousness: patient oriented x3 GI Other: soft, nontender, nondistended, incisions well healed, no hernia, no masses Grade II pannus Neuro General: patient oriented x3 Assessment & Plan Assessment & Plan (1) Overweight: Code(s): E66.3 - Overweight Category: Medical (2) S/P laparoscopic sleeve gastrectomy: Code(s): Z98.84 - Bariatric surgery status Category: Surgical (3) Excess skin: Code(s): L98.7 - Excessive and redundant skin and subcutaneous tissue Category: Medical Plan Pt is experiencing issues of excess skin of abdomen, resulting in frequent painful rashes refractory to topical Rx treatment. She is also experiencing difficulties with activities of daily living including walking due to discomfort from the excess skin. She would benefit from panniculectomy. Annual labs ordered. Photos taken today. Pt would like to have surgery in December if approved. Orders: Orders Vitamin D 25-OH Total Today Z98.84 - Bariatric surgery status Ferritin Today Z98.84 - Bariatric surgery status TSH reflex Free T4 Today Z98.84 - Bariatric surgery status Vitamin B1 Today Z98.84 - Bariatric surgery status Zinc Today Z98.84 - Bariatric surgery status Vitamin B12 and Folate Today Z98.84 - Bariatric surgery status Comprehensive Met. Panel Today Z.84 - Bariatric surgery status Complete Blood Count Auto Diff Today Z9884 - Bariatric surgery status C Reactive Protein Today Z98.84 - Bariatric surgery status Vitamin A Today Z98.84 - Bariatric surgery status Lipid Panel Today Z98.84 - Bariatric surgery status IRON PROFILE Today Z98.84 - Bariatric surgery status Hemoglobin A1c Today Z98.84 - Bariatric surgery status Insulin Today Z98.84 - Bariatric surgery status
[2025-07-07 09:45] VITALS: BP 130/76; PULSE 72; TEMP 36.4; O2SAT 98; BMI 26.9
--- OUTSIDE RECORDS SUMMARY | 2025-07-07 10:10 | XMS_ITS | Patient Health Record ---
Author Organization [facility] Address [address] [place] [address] Care Team Providers Care Auto Mechanics Instructor Name Role Phone Marco Antonio Baltazar MD Primary Care Provider Unavailab burt Kirti Sales Unavailable [phone] Allergies No Known Allergies Reason For Referral No Information Medications Medication SIG (Take, Route, Fr equency, Duration) Notes Start Date End Date Status Cimetidine 400 MG TAKE 1 TABLET BY [facility] TWICE A DAY; Duration: 90 Active Social History Tobacco Use: Social [...] Treatment Pending Test Test Name Order Date [id number] Destruction, 1-14 07/16/2023 04624 - Shave Biopsy of Skin Lesion 07/06 Insurance Providers Payer Name Payer Address Payer Phone Subscriber Number Group Number Insured Name Patient Relationship to Insured Coverage Start Date Coverage End Date [employer] ([facility]) [address] [place] [id number] Self - patient is the insured Medical (General) History Surgical History Surgery Date(Month/Year) Hospitalization History Reason Date(Month/Year) [facility] [place]
--- OUTSIDE RECORDS SUMMARY | 2025-07-07 10:10 | XMS_ITS | Clinical Summary ---
Author Organization [facility] Address [address] [place] [address] Care Team Providers Care Poultry Pinner Name Role Phone Unavailable Primary Care Provider [...] series) 1994 Mammogram/Breast Imaging 2015 COVID-19 Vaccine (2023-2 5 season) 2025 Influenza (#1) 2025 Zoster (Shingrix) (1 of 2) 2025 HPV Vaccine (No Doses Required) Completed Hep A Aged Out No longer eligi ble based on patient's age to complete this topic Hib Aged Out No longer eligi ble based on patient's age to complete this topic Meningococcal ACWY Aged Out No longer eligible based on patient's age to complete this topic Pneumococcal Aged Out No longer eligi ble based on patient's age to complete this topic Insurance [facility]
== END 2025-07-07 10:01 | disposition home or self-care (01) ==
LOC: HO.HBS 09:17
PROVIDERS: PCP Family Medicine; Visit Provider Physician Assistant Surgical
DX: E66.3 Overweight (principal); Z98.84 Bariatric surgery status; L98.7 Excessive and redundant skin and subcutaneous tissue
CPT/HCPCS: 99214